=== PATIENT | female | born 1995 | race Caucasian/White ===

== ENCOUNTER 2017-08-21 15:16 | Emergency (ER) | payer BC, SELFPAY ==
[2017-08-21 15:17] VITALS: BP 160/80; PULSE 91; RESP 14; TEMP 36.8; O2SAT 99; BMI 26.8
--- NOTE | 2017-08-21 15:32 | XR_ITS ---
XR chest 2V HISTORY: Cough, chest pain ITS.REASON: cough; pain ORDERING PHYSICIAN: Ilene Galvez MD PATIENT AGE: 22 years COMPARISON: None available FINDINGS: The cardiomediastinal silhouette and pulmonary vascularity are within normal limits. No lobar consolidation or collapse is evident. There is a 7 mm nodular opacity overlying the left lower lobe at the fifth interspace anteriorly nonspecific. No effusions. No acute bony abnormalities. IMPRESSION: 1. No acute finding. 2. Nonspecific nodule in the left lower lung zone. This may be related to granuloma. Suggest obtaining old films available. There are no old films available at this institution. If no old films are available then, follow-up radiograph may confirm stability
--- NOTE | 2017-08-21 16:43 | HMH.EDGENADL ---
ED Disposition Clinical Impression: Acute bronchitis, Acute costochondritis, Lung granuloma Acute sinusitis Qualifiers: Sinusitis location: unspecified location Disposition: Home, Self-Care Condition on Discharge: Good Instructions: Sinusitis Additional Instructions: The patient allergy Ceclor and sulfa we decided to go with amoxicillin that she tolerated in the past. She is to follow-up with Dr. Hays in the morning on her abnormal chest x-ray and for reexamination. Return if needed. Prescriptions: Amoxicillin [Amoxicillin 500mg Cap] 500 mg PO TID #30 capsule Referrals: Provider,Referral, [Primary Care Provider] - - Critical Care Critical Care Time: No Attestation: On 08/21/17, the high probability of a clinically significant, sudden or life threatening deterioration of the following system(s) required my full and direct attention, intervention and personal management. The time I documented below is in addition to time spent performing reported procedures but includes the following listed in this critical care notation. Medical Decision Making Vital Signs: 08/21/17 15:17 Temperature 98.2 F Temperature Source Oral Pulse Rate [Left Brachial] 91 H Respiratory Rate 14 Blood Pressure [Right Arm] 160/80 Blood Pressure Mean [Right Arm] 106 Blood Pressure Source [Right Arm] Automatic Cuff Blood Pressure Position [Right Arm] Sitting 02 Sat by Pulse Oximetry 99 Oxygen Delivery Method Room Air - Radiology Data #1 Image(s): Chest Image Reviewed: Yes I reviewed the patient's radiology results, Yes I reviewed the patient's radiology image w/the ED provider Preliminary Findings: Normal/NAD MPRESSION: 1. No acute finding. 2. Nonspecific nodule in the left lower lung zone. This may be related to granuloma. Suggest obtaining old films available. There are no old films available at this institution. If no old films are available then, follow-up radiograph may confirm stability. I informed the patient of the above findings. She was informed that she needs to follow-up with Dr. Hays on on her clinical condition and the chest x-ray report. - Zeeshan Inquiry Pt receiving controlled substance: No Zeeshan was queried for this patient: No General Adult HPI - General Chief complaint: PAIN Stated complaint: Pain in chest, has cold Mode of Arrival: Ambulatory Limitations: No Limitations Description of Symptoms (Recalled from ER Triage Doc. by RN): pt c/o productive cough and hurts to take a breath for the past couple of days - History of Present Illness HPI narrative: 22 years old white female with history of VSD and seizures. she she developed a sore throat's and sinus drainage 10 days ago, then she developed green productive cough for the past week, the past 2 days she has been experiencing parasternal sharp chest pain worse with cough. She does take control pills. He denies having shortness of air palpitations or dizziness. Onset (ago): day(s) (Cough for 10 days and pain for 2 days.) Location: chest Radiation: non-radiation Severity: moderate Quality: sharp Consistency: intermittent Relieving factors: other (Not cough) Exacerbating factors: other (Cough.) Treatments prior to arrival: cold therapy ([id number] cough medicine) - Related Data Previous Rx's Medication Instructions Recorded Amoxicillin [Amoxicillin 500mg 500 mg PO TID #30 capsule 08/21/17 Cap] Allergies Allergy/AdvReac Type Severity Reaction Status Date / Time Cefaclor Allergy Unknown Uncoded 07/29/17 15:01 Sulfonamide Allergy Unknown Uncoded 07/29/17 15:01 [facility] History I have reviewed the patient's past medical history: Yes Medical History: Denies:: Cancer, Diabetes Mellitus Type 1, Diabetes Mellitus Type 2, MRSA Amputation: No Fractures: No - *Social History Alcohol Intake: never - Psychiatric History Expresses thoughts of harming self/others: None Suicide Plan D
--- NOTE | 2017-08-21 16:49 | ED_ITS ---
ED Disposition Clinical Impression: Acute bronchitis, Acute costochondritis, Lung granuloma Acute sinusitis Qualifiers: Sinusitis location: unspecified location Disposition: Home, Self-Care Condition on Discharge: Good Instructions: Sinusitis Additional Instructions: The patient allergy Ceclor and sulfa we decided to go with amoxicillin that she tolerated in the past. She is to follow-up with Dr. Hays in the morning on her abnormal chest x-ray and for reexamination. Return if needed. Prescriptions: Amoxicillin [Amoxicillin 500mg Cap] 500 mg PO TID #30 capsule Referrals: Provider,Referral, [Primary Care Provider] - - Critical Care Critical Care Time: No Attestation: On 08/21/17, the high probability of a clinically significant, sudden or life threatening deterioration of the following system(s) required my full and direct attention, intervention and personal management. The time I documented below is in addition to time spent performing reported procedures but includes the following listed in this critical care notation. Medical Decision Making Vital Signs: 08/21/17 15:17 Temperature 98.2 F Temperature Source Oral Pulse Rate [Left Brachial] 91 H Respiratory Rate 14 Blood Pressure [Right Arm] 160/80 Blood Pressure Mean [Right Arm] 106 Blood Pressure Source [Right Arm] Automatic Cuff Blood Pressure Position [Right Arm] Sitting 02 Sat by Pulse Oximetry 99 Oxygen Delivery Method Room Air - Radiology Data #1 Image(s): Chest Image Reviewed: Yes I reviewed the patient's radiology results, Yes I reviewed the patient's radiology image w/the ED provider Preliminary Findings: Normal/NAD MPRESSION: 1. No acute finding. 2. Nonspecific nodule in the left lower lung zone. This may be related to granuloma. Suggest obtaining old films available. There are no old films available at this institution. If no old films are available then, follow-up radiograph may confirm stability. I informed the patient of the above findings. She was informed that she needs to follow-up with Dr. Hays on on her clinical condition and the chest x-ray report. - Zeeshan Inquiry Pt receiving controlled substance: No Zeeshan was queried for this patient: No General Adult HPI - General Chief complaint: PAIN Stated complaint: Pain in chest, has cold Mode of Arrival: Ambulatory Limitations: No Limitations Description of Symptoms (Recalled from ER Triage Doc. by RN): pt c/o productive cough and hurts to take a breath for the past couple of days - History of Present Illness HPI narrative: 22 years old white female with history of VSD and seizures. she she developed a sore throat's and sinus drainage 10 days ago, then she developed green productive cough for the past week, the past 2 days she has been experiencing parasternal sharp chest pain worse with cough. She does take control pills. He denies having shortness of air palpitations or dizziness. Onset (ago): day(s) (Cough for 10 days and pain for 2 days.) Location: chest Radiation: non-radiation Severity: moderate Quality: sharp Consistency: intermittent Relieving factors: other (Not cough) Exacerbating factors: other (Cough.) Treatments prior to arrival: cold therapy ([id number] cough medicine) - Related Data Previous Rx's Medication Instructions Recorded Amoxicillin [Amoxicillin 50
== END 2017-08-21 17:02 | disposition home or self-care (01) ==
PROVIDERS: Emergency Provider Emergency Medicine; Family Provider Family Medicine
DX: J20.9 Acute bronchitis, unspecified (principal); M94.0 Chondrocostal junction syndrome [Tietze]; J84.10 Pulmonary fibrosis, unspecified; Z88.1 Allergy status to other antibiotic agents; Z88.2 Allergy status to sulfonamides; R56.9 Unspecified convulsions
CPT/HCPCS: 71046; 99283

== ENCOUNTER 2017-09-09 19:19 | Emergency (ER) | payer BC, SELFPAY ==
[2017-09-09 19:33] VITALS: BP 144/88; PULSE 88; RESP 22; TEMP 36.8; O2SAT 97; BMI 24.7
--- NOTE | 2017-09-09 20:07 | HMH.EDUTC ---
[facility] [place] Impression: Acute bronchitis Qualifiers: Bronchitis organism: unspecified organism Qualified Code(s): J20.9 - Acute bronchitis, unspecified Disposition: Home, Self-Care Condition on Discharge: Good Instructions: DI for Acute Bronchitis Additional Instructions: * start antibiotic JACKSON. Be sure to complete entire prescription even if feeling better. * Monitor Temp. Follow up if fever develops * humidifier/vaporizer/hot steamy shower * Inhaler every 4-6 hours as needed like we discussed. * Mucinex during the day for your cough and cough suppressant only at night. Be sure to drink lots of water. Insurance may not cover a prescription of mucinex. Might be cheaper to get 400mg tablets and take 2 tablets morning, midday and evening all with lots of water. * Robitussin ok to continue but would encourage it for nighttime. * Start steroid JACKSON. Helps with inflammation therefore, cough and wheezing. Follow directions on package. Rvwd side effects. Pt reports they have taken them before. Prescriptions: Azithromycin [Z-Horacio 250mg Tab] 250 mg PO UD DOSE PK #6 tab predniSONE [Deltasone 10mg tablet] 10 mg PO BID #10 tab Referrals: Sterling Awan MD [Primary Care Provider] - (tomorrow for final xray results and IMMEDIATELY for new or worsening symptoms OR no noticeable improvement over the next 48-72 hours. 911 for difficulty breathing.) Time of Disposition: 21:16 Medical Decision Making Vital Signs: 09/09/17 19:33 Temperature 98.2 F Temperature Source Temporal Artery Scan Pulse Rate [Right] 88 Respiratory Rate 22 Blood Pressure [Right Arm] 144/88 Blood Pressure Mean [Right Arm] 106 Blood Pressure Source [Right Arm] Automatic Cuff Blood Pressure Position [Right Arm] Sitting 02 Sat by Pulse Oximetry 97 Oxygen Delivery Method Room Air Orders (Tests/Meds): ORDERS Category Date Time Status CXR 2 view (NOT portable) [XR chest 2V] Stat Exams 09/09/17 20:19 Taken - Radiology Data #1 Image(s): Chest Image Reviewed: Yes I reviewed the patient's radiology image w/the ED provider Rvwd with ARIK Ramsay MD. Reports no acute findings and suggest azithromycin and steroid based on symptoms. Aware pt and I had already discussed this POC pending xray results - Zeeshan Inquiry Pt receiving controlled substance: No [facility] [place] - General Stated complaint: Upper Respiratory Time Seen by Provider: 09/09/17 20:07 Mode of Arrival: Ambulatory Source of Information: Patient Limitations: No Limitations Description of Symptoms (Recalled from Triage Doc. by RN): COUGH, CONGESTION HEENT Symptoms (Recalled from RN notes): Yes Resp Symptoms (Recalled from RN notes): No Skin Symptoms (Recalled from RN notes): No MS Symptoms (Recalled from RN notes): No Functional Status (Recalled from RN notes): N - History of Present Illness Provider Complaint: Here w/ mom c/o cough x 2-3 weeks. Reports was seen in ER. Dx possible pneumonia and prescribed amoxicillin. Followed up with PCP, Dr. awan. Was told amoxicillin not necessary but could take it if she wanted to and to repeat CXR in 3 months due to nodule left lower lung. Has taken amoxicillin here and there and still have several remaining. Cough no better. Robitussin helps with cough at night. Hasn't taken or tried anything else. Mom with upper resp symptoms but little to no cough and pt without head symptoms. SOA at times only with exertion. Doesn't think she has been wheezing. - Related Data Home Medications Medication Instructions Recorded Confirmed Amoxicillin [Amoxicillin 500mg 500 mg PO TID 09/09/17 09/09/17 Cap] Previous Rx's Medication Instructions Recorded Azithromycin [Z-Horacio 250mg Tab] 250 mg PO UD DOSE PK #6 tab 09/09/17 predniSONE [Deltasone 10mg tablet] 10 mg PO BID #10 tab 09/09/17 Allergies Allergy/AdvReac Type Severity Reaction Status Date / Time Cefaclor Allergy Unknown Uncoded 07/29/17 15:01 Sulfonamide Allergy
--- NOTE | 2017-09-09 20:19 | XR_ITS ---
XR chest 2V HISTORY: ITS.REASON: cough x 2-3 weeks; nonsmoker, last CXR 2-3 weeks ORDERING PHYSICIAN: Enma Huitron PATIENT AGE: 22 years COMPARISON: 08/21/2017 FINDINGS: The cardiomediastinal silhouette and pulmonary vascularity are within normal limits. Patchy infiltrate suspected right lung base medially. Previously noted nodular opacity left lung base somewhat less apparent possibly related to technique. Continued follow-up recommended. No acute bony anomalies. IMPRESSION: Patchy infiltrate in the right lung base
== END 2017-09-09 21:16 | disposition home or self-care (01) ==
PROVIDERS: Emergency Provider Nurse Practitioner Family; Family Provider Family Medicine; PCP Family Medicine
DX: J20.9 Acute bronchitis, unspecified (principal); Z88.2 Allergy status to sulfonamides
CPT/HCPCS: 71046; 99202

== ENCOUNTER → 2019-06-08 15:27 | Outpatient (CLI) | payer OTHER, SELFPAY | PROVIDERS: Visit Provider Obstetrics & Gynecology | DX: R53.83 Other fatigue (principal) | CPT/HCPCS: 36415; 84443 ==

== ENCOUNTER → 2020-02-25 13:12 | Outpatient (CLI) | payer OTHER, SELFPAY ==
[2020-02-25 16:10] LABS: Coronavirus 19 IgG Antibody Negative (Negative); Coronavirus 19 IgM Antibody Negative (Negative)
== END ==
PROVIDERS: PCP Family Medicine; Visit Provider Family Medicine
DX: Z03.818 Encounter for observation for suspected exposure to other biological agents ruled out (principal)
CPT/HCPCS: 86328

== ENCOUNTER 2020-03-01 07:41 | Emergency (ER) | payer OTHER, SELFPAY ==
[2020-03-01 07:50] VITALS: BP 132/85; PULSE 85; RESP 16; TEMP 36.8; O2SAT 99; BMI 29.2
--- NOTE | 2020-03-01 07:57 | PC.NURSE ---
Notified lab need for workmans comp drug screen
--- NOTE | 2020-03-01 08:21 | HMH.EDGENADL ---
ED Disposition Clinical Impression: Thoracic myofascial strain Qualifiers: Encounter type: initial encounter Qualified Code(s): S29.019A - Strain of muscle and tendon of unspecified wall of thorax, initial encounter Disposition: Home, Self-Care Condition on Discharge: Good Additional Instructions: Ibuprofen for pain. May take Robaxin (muscle relaxer) at night if needed, do not take during the day, while driving, or at work. Apply heat 20 to 30 minutes 3-4 times a day. Follow-up with primary care provider, call for appointment. Light duty, no lifting, pushing, or pulling for 3 days. Prescriptions: Ibuprofen [Ibuprofen 600mg Tab] 600 mg PO Q6HP PRN #12 tab PRN Reason: Moderate Pain Transmission Status: P[facility] to [facility] methocarbamoL [Robaxin 750mg Tab] 750 mg PO QIDP PRN #12 tab PRN Reason: Muscle Spasm Transmission Status: Pending to [facility] Referrals: Sterling Hays MD [Primary Care Provider] - - Critical Care Critical Care Time: No Attestation: On 03/01/20, the high probability of a clinically significant, sudden or life threatening deterioration of the following system(s) required my full and direct attention, intervention and personal management. The time I documented below is in addition to time spent performing reported procedures but includes the following listed in this critical care notation. Medical Decision Making - Zeeshan Inquiry Pt receiving controlled substance: No Vital Signs: 03/01/20 07:50 Temperature 98.3 F Temperature Source Oral Pulse Rate [Right] 85 Respiratory Rate 16 Blood Pressure [Right Arm] 132/85 Blood Pressure Mean [Right Arm] 100 Blood Pressure Source [Right Arm] Automatic Cuff Blood Pressure Position [Right Arm] Sitting 02 Sat by Pulse Oximetry 99 Oxygen Delivery Method Room Air Orders (Tests/Meds): ORDERS Category Date Time Status CT thoracic spine wo con Stat Cat Scan 03/01/20 08:40 Ordered General Adult HPI - General Chief complaint: Back Pain/Injury Stated complaint: [id number] back pain Time Seen by Provider: 03/01/20 08:21 Mode of Arrival: Ambulatory Limitations: No Limitations Description of Symptoms (Recalled from ER Triage Doc. 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 - History of Present Illness HPI narrative: States that at 710 this morning she was moving a resident with another employee when she felt a sudden pain in the area of her left scapula. States it currently hurts most when she tries to sit up straight. No fall or direct trauma. No treatment prior to arrival. - Related Data Home Medications Medication Instructions Recorded Confirmed metoprolol succ 25 1 tab PO DAILY 06/08/19 03/01/20 mg-hydrochlorothiazide 12.5 mg tablet,ext.rel 24 hr Medroxyprogesterone Acetate 5 mg PO ONCE 03/01/20 03/01/20 Previous Rx's Medication Instructions Recorded Ibuprofen [Ibuprofen 600mg Tab] 600 mg PO Q6HP PRN #12 tab 03/01/20 methocarbamoL [Robaxin 750mg Tab] 750 mg PO QIDP PRN #12 tab 03/01/20 Allergies Allergy/AdvReac Type Severity Reaction Status Date / Time No Known Allergies Allergy Verified 03/01/20 07:56 [facility] History - Hepatitis A Screen Drug use history?: No High risk sexual behaviors?: No History of sexually transmitted infection?: No Currently employed?: No Childcare worker?: No Do you have indoor plumbing?: Yes Do you have electricity?: Yes Attestation statement:: This patient has been screened for Hepatitis A risk factors. 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 WISDOM TEETH REMOVAL--
[2020-03-01 09:06] VITALS: BP 132/85; PULSE 85; RESP 16; TEMP 36.8; O2SAT 99
== END 2020-03-01 09:08 | disposition home or self-care (01) ==
PROVIDERS: Emergency Provider Emergency Medicine; PCP Family Medicine
DX: S29.019A Strain of muscle and tendon of unspecified wall of thorax, initial encounter (principal); I10 Essential (primary) hypertension; X50.0XXA Overexertion from strenuous movement or load, initial encounter; Y92.69 Other specified industrial and construction area as the place of occurrence of the external cause; Y99.0 Civilian activity done for income or pay
CPT/HCPCS: 99281

== ENCOUNTER 2020-06-26 18:56 | Emergency (ER) | payer OTHER, SELFPAY ==
[2020-06-26 19:10] VITALS: BP 125/88; PULSE 89; RESP 18; TEMP 36.8; O2SAT 98; BMI 29.2
--- NOTE | 2020-06-26 19:33 | HMH.EDUTC ---
[facility] – [place] Disposition Clinical Impression: Sinusitis Qualifiers: Sinusitis location: unspecified location Chronicity: acute Recurrence: non-recurrent Qualified Code(s): J01.90 - Acute sinusitis, unspecified Disposition: Home, Self-Care Condition on Discharge: Good Instructions: Sinusitis, DI for Sinusitis Additional Instructions: Drink plenty of fluids. Take tylenol or ibuprofen for pain or fever. Take the medications as directed. Follow up with your regular doctor. GO TO THE ER FOR ANY WORSENING SYMPTOMS Prescriptions: Brompheniramine/Pseudoephed/Dm [Bromfed Dm Cough Syrup] 5 ml PO Q6HP PRN #240 syrup PRN Reason: Cough Transmission Status: Received by [id number] Azithromycin [Z-Horacio 250mg Tab*] 250 mg PO UD DOSE PK #6 tab Transmission Status: Received by [id number] Referrals: Sterling Hays MD [Primary Care Provider] - Time of Disposition: 19:35 Medical Decision Making - Medical Records Medical records reviewed: No: I reviewed the patient's medical records. - Zeeshan Inquiry Pt receiving controlled substance: No Vital Signs: 06/26/20 19:10 06/26/20 19:37 Temperature 98.2 F 98.2 F Temperature Source Oral Pulse Rate 89 Pulse Rate [Right Brachial] 89 Respiratory Rate 18 18 Blood Pressure 125/88 Blood Pressure [Right Arm] 125/88 Blood Pressure Mean [Right Arm] 100 Blood Pressure Source [Right Arm] Automatic Cuff Blood Pressure Position [Right Arm] Sitting 02 Sat by Pulse Oximetry 98 Oxygen Delivery Method Room Air [facility] [place] HPI - General Stated complaint: cough possible sinus infection Time Seen by Provider: 06/26/20 19:33 Mode of Arrival: Ambulatory Source of Information: Patient Limitations: No Limitations Description of Symptoms (Recalled from Triage Doc. by RN): PATIENT C/O SINUS PRESSURE AND PAIN SINCE FRIDAY HEENT Symptoms (Recalled from RN notes): Yes Resp Symptoms (Recalled from RN notes): No Skin Symptoms (Recalled from RN notes): No MS Symptoms (Recalled from RN notes): No Functional Status (Recalled from RN notes): WNL - History of Present Illness Provider Complaint: She states that she has had sinus congestion for the past 2 days. She had a negative covid test today at her job. - Related Data Previous Rx's Medication Instructions Recorded Azithromycin [Z-Horacio 250mg Tab*] 250 mg PO UD DOSE PK #6 tab 06/26/20 Brompheniramine/Pseudoephed/Dm 5 ml PO Q6HP PRN #240 syrup 06/26/20 [Bromfed Dm Cough Syrup] Allergies Allergy/AdvReac Type Severity Reaction Status Date / Time cefaclor [From Ceclor] Allergy Verified 06/26/20 19:21 Sulfa (Sulfonamide Allergy Verified 06/26/20 19:21 Antibiotics) - Worker's Comp Is this a Worker's Comp case?: No [facility] History - Hepatitis A Screen Drug use history?: No High risk sexual behaviors?: No History of sexually transmitted infection?: No Currently employed?: No Childcare worker?: No Do you have indoor plumbing?: Yes Do you have electricity?: Yes Attestation statement:: This patient has been screened for Hepatitis A risk factors. 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 WISDOM TEETH REMOVAL---2016 - Social History Smoking Status: Never smoker Alcohol Intake: never Alcohol Intake Frequency:: other Substance Use Type: denies use Occupational Status: other Family Hx:: No significant family history RADIOGRAPHER history: No RADIOGRAPHER history ROS Obtained: Yes All systems reviewed & no additional complaints - Constitutional Constitutional: Reports system reviewed and no additional complaints, except as docu - Eyes Eyes: Reports system reviewed and no additional complaints, except as docu - ENT Ears, Nose, Mouth, and Throat: Reports system reviewed and no additional complaints, except a
[2020-06-26 19:37] VITALS: BP 125/88; PULSE 89; RESP 18; TEMP 36.8; O2SAT 98
== END 2020-06-26 19:43 | disposition home or self-care (01) ==
PROVIDERS: Emergency Provider Nurse Practitioner Family; PCP Family Medicine
DX: J01.90 Acute sinusitis, unspecified (principal); I10 Essential (primary) hypertension; Z88.2 Allergy status to sulfonamides
CPT/HCPCS: 99201

== ENCOUNTER 2020-08-24 19:15 | Emergency (ER) | payer OTHER, SELFPAY ==
[2020-08-24 19:40] VITALS: BP 136/90; PULSE 97; RESP 19; TEMP 37; O2SAT 98
--- NOTE | 2020-08-24 20:01 | HMH.EDUTC ---
[facility] [place] Disposition Clinical Impression: Upper respiratory infection Qualifiers: URI type: unspecified URI Qualified Code(s): J06.9 - Acute upper respiratory infection, unspecified Disposition: Home, Self-Care Condition on Discharge: Good Instructions: Sore Throat, DI for Sinusitis Additional Instructions: *Monitor Temp, Over the counter Motrin or Tylenol as directed/as needed Tylenol every 4 hours and Motrin every 6 hours (as long as your family doctor has told you that you can take it) for fever or pain. and straight to ER if unable to lower temp less than 101.0 after medication given *Warm salt water gargles may help to soothe the throat *Throat Lozenges *Warm fluids like tea with honey may help to soothe the throat *Sleep elevated *Humidifier/Vaporizer Your throat swab was sent for culture. Those results are typically sent to your primary care. Be sure to follow up in 2-3 days with your family doctor/primary care physician if no improvement so they can review those result and treat if necessary. If you don?t have a primary care doctor, I recommend you get one but in the mean time, you will have to return to a walk in clinic Follow up IMMEDIATELY for new or worsening symptoms or no Noticeable improvement over the next 48-72 hours. 911 for difficulty breathing or swallowing Prescriptions: Azithromycin [Z-Horacio 250mg Tab] 250 mg PO DIRECTED #6 tab Transmission Status: Pending to [id number] Referrals: Sterling Hays MD [Primary Care Provider] - As needed Forms: Work/School Release Time of Disposition: 20:05 Medical Decision Making - Zeeshan Inquiry Pt receiving controlled substance: No Zeeshan was queried for this patient: No Vital Signs: 08/24/20 19:40 Temperature 98.6 F Temperature Source Oral Pulse Rate [Right Brachial] 97 H Respiratory Rate 19 Blood Pressure [Left Arm] 136/90 Blood Pressure Mean [Left Arm] 105 Blood Pressure Source [Left Arm] Automatic Cuff Blood Pressure Position [Left Arm] Sitting 02 Sat by Pulse Oximetry 98 Oxygen Delivery Method Room Air Medical Decision Narrative: Patient denies States that she has taken azithromycin before without complications or reactions [facility] [place] HPI - General Stated complaint: Sore throat Time Seen by Provider: 08/24/20 20:01 Mode of Arrival: Ambulatory Source of Information: Patient Limitations: No Limitations Description of Symptoms (Recalled from Triage Doc. by RN): PATIENT C/O SORE THROAT AND COUGH THAT STARTED LAST NIGHT HEENT Symptoms (Recalled from RN notes): No Resp Symptoms (Recalled from RN notes): No Skin Symptoms (Recalled from RN notes): No MS Symptoms (Recalled from RN notes): No Functional Status (Recalled from RN notes): WNL - History of Present Illness Provider Complaint: Patient states that she has been having sinus pain and congestion on and off for a couple of weeks State that last night she started having pressure and sore scratchy throat States that today she has continued to have sore throat and hurt when she swallows so she came in to get checked - Related Data Previous Rx's Medication Instructions Recorded Azithromycin [Z-Horacio 250mg Tab] 250 mg PO DIRECTED #6 tab 08/24/20 Allergies Allergy/AdvReac Type Severity Reaction Status Date / Time cefaclor [From Ceclor] Allergy Verified 06/26/20 19:21 Sulfa (Sulfonamide Allergy Verified 06/26/20 19:21 Antibiotics) - Worker's Comp Is this a Worker's Comp case?: No [facility] History - Hepatitis A Screen Drug use history?: No High risk sexual behaviors?: No History of sexually transmitted infection?: No Currently employed?: No Childcare worker?: No Do you have indoor plumbing?: Yes Do you have electricity?: Yes Attestation statement:: This patient has been screened for Hepatitis A risk factors. Medical History: Reports:: Hypertension Denies:: Cancer, Diabetes Mellitus Type 1, Diabetes Mellitus Type 2, MRSA Comment: ALEAH Rosen
[2020-08-24 20:10] VITALS: BP 136/90; PULSE 97; RESP 19; TEMP 37; O2SAT 98
[2020-08-24 20:53] LABS: UTC Strep Screen (Rapid) Negative (Negative)
== END 2020-08-24 20:12 | disposition home or self-care (01) ==
PROVIDERS: Emergency Provider Nurse Practitioner; PCP Family Medicine
DX: J06.9 Acute upper respiratory infection, unspecified (principal); I10 Essential (primary) hypertension; Z88.2 Allergy status to sulfonamides
CPT/HCPCS: 87880; 99202; G0463

== ENCOUNTER → 2021-01-01 13:02 | Outpatient (CLI) | payer OTHER, SELFPAY ==
[2021-01-01 14:49] LABS: HCG,Quantitative < 2 mIU/ml (0-5.42)
[2021-01-04 05:52] LABS: Progesterone 0.1 ng/mL (.)
== END ==
PROVIDERS: Visit Provider Obstetrics & Gynecology
DX: N97.9 Female infertility, unspecified (principal)
CPT/HCPCS: 36415; 84144; 84702

== ENCOUNTER → 2021-01-23 08:48 | Outpatient (CLI) | payer OTHER, SELFPAY ==
[2021-01-24 08:43] LABS: Progesterone 21.9 ng/mL (.)
== END ==
LOC: LAB 08:48
PROVIDERS: Visit Provider Obstetrics & Gynecology
DX: N97.9 Female infertility, unspecified (principal)
CPT/HCPCS: 36415; 84144

== ENCOUNTER → 2021-01-26 08:57 | Outpatient (CLI) | payer OTHER, SELFPAY ==
[2021-01-26 10:37] LABS: HCG,Quantitative < 2 mIU/ml (0-5.42)
== END ==
LOC: LAB 08:57
PROVIDERS: Visit Provider Obstetrics & Gynecology
DX: N97.9 Female infertility, unspecified (principal)
CPT/HCPCS: 36415; 84702

== ENCOUNTER → 2021-02-06 12:48 | Outpatient (CLI) | payer OTHER, SELFPAY ==
[2021-02-06 14:07] LABS: HCG,Quantitative 982 mIU/ml (0-5.42)
== END ==
LOC: LAB 12:49
PROVIDERS: Visit Provider Obstetrics & Gynecology
DX: Z34.90 Encounter for supervision of normal pregnancy, unspecified, unspecified trimester (principal)
CPT/HCPCS: 84702

== ENCOUNTER → 2021-02-08 08:37 | Outpatient (CLI) | payer OTHER, SELFPAY ==
[2021-02-08 10:12] LABS: HCG,Quantitative 2094 mIU/ml (0-5.42)
== END ==
PROVIDERS: Visit Provider Obstetrics & Gynecology
DX: Z34.90 Encounter for supervision of normal pregnancy, unspecified, unspecified trimester (principal)
CPT/HCPCS: 36415; 84702

== ENCOUNTER → 2021-02-27 14:41 | Outpatient (CLI) | payer OTHER, SELFPAY ==
--- NOTE | 2021-02-27 14:42 | US_ITS ---
PROCEDURE: US OB <= 14 WEEKS FETUS CLINICAL INDICATION: dates COMPARISON: No exams were available for comparison FINDINGS: An intrauterine gestational sac is present with a pole with a crown-rump length of 1.17cm correlating to gestational age of 7weeks 3days. heart tones are present with an FHR of 147bpm. Yolk sac is noted. Ovaries are not visualized due to the presence of bowel gas in bilateral adnexa. IMPRESSION: Single intrauterine gestation with gestational age of 7 weeks and 3 days. Estimated due date by Ultrasound is 10/13/2021 Dictated by: Maggie Valladares 02/27/2021 16:25 Maggie Valladares in OV 02/27/2021 16:25
== END ==
PROVIDERS: PCP Family Medicine; Visit Provider Obstetrics & Gynecology
DX: Z34.91 Encounter for supervision of normal pregnancy, unspecified, first trimester (principal)
CPT/HCPCS: 76801

== ENCOUNTER → 2021-03-02 14:50 | Outpatient (CLI) | payer OTHER, SELFPAY ==
[2021-03-02 15:35] LABS: Basophils % 0.5 % (0.1-2.0); Eosinophils % 0.3 % (0.1-12.0); Hematocrit 40.2 % (37.0-47.0); Lymphocytes # 2.6 K/mm3 (0.7-4.5); Lymphocytes % 26.6 % (10-50); Mean Corpuscular HGB Conc 34.8 g/dL (31.8-35.4); Mean Corpuscular Hemoglobin 30.5 pg (27.0-31.2); Mean Corpuscular Volume 87.5 fl (81-99); Mean Platelet Volume 7.3 fl (7.4-10.4); Monocytes # 0.4 K/mm3 (0.1-1.0); Neutrophils # 6.5 K/mm3 (1.8-7.8); Neutrophils % 68.5 % (37.0-80.0); Platelet Count 273 K/mm3 (142-424); Red Blood Count 4.59 M/mm3 (4.20-5.40); White Blood Count 9.5 K/mm3 (4.8-10.8)
[2021-03-04 07:43] LABS: Rubella Antibodies, IgG 1.75 index (Immune >0.99)
[2021-03-04 10:41] LABS: HIV Screen 4th Generation wRfx Non Reactive (Non Reactive); Rapid Plasma Reagin Ab Titer Non Reactive (NonRea<1:1)
[2021-03-04 11:27] LABS: Hepatitis B Surface Antigen Negative (Negative); Hepatitis C Antibody <0.1 s/co ratio (0.0-0.9)
== END ==
PROVIDERS: Visit Provider Obstetrics & Gynecology
DX: Z34.90 Encounter for supervision of normal pregnancy, unspecified, unspecified trimester (principal)
CPT/HCPCS: 36415; 85025; 86592; 86703; 86762; 87086; 87340; 87380; G0432

== ENCOUNTER → 2021-03-02 16:33 | Outpatient (CLI) | payer OTHER, SELFPAY | PROVIDERS: Visit Provider Obstetrics & Gynecology | DX: Z34.90 Encounter for supervision of normal pregnancy, unspecified, unspecified trimester (principal) | CPT/HCPCS: 86850 ==

== ENCOUNTER 2021-03-14 13:19 | Emergency (ER) | payer OTHER, SELFPAY ==
[2021-03-14 13:21] VITALS: BP 132/81; PULSE 100; RESP 16; TEMP 36.8; O2SAT 100; BMI 32.4
[2021-03-14 13:43] LABS: Microscopic, Urine URINE MICROSCOPIC (MICROSCOPIC)
[2021-03-14 13:47] LABS: Appearance,Urine CLEAR (Clear); Bilirubin,Urine Negative (Negative); Blood, Urine Negative (Negative); Color,Urine YELLOW (Yellow); Glucose,Urine (UA) Negative (Negative); Ketones,Urine Negative (Negative); Leukocyte Esterase,Urine 1+ (Negative); Nitrate,Urine Negative (Negative); PH,Urine 5.5 (5.0-8.5); Protein,Urine Negative (Negative); Specific Gravity, Urine <= 1.005 (1.005-1.030); Urobilinogen,Urine 0.2 EU/dl (0.2)
[2021-03-14 13:57] LABS: RBC,Urine Occasional #/hpf (0-3)
[2021-03-14 13:58] LABS: Bacteria,Urine Trace /lpf
--- NOTE | 2021-03-14 15:20 | HMH.EDGENADL ---
ED Disposition Clinical Impression: Bacteriuria during Disposition: Home, Self-Care Condition on Discharge: Good Prescriptions: Nitrofurantoin Monohyd/M-Cryst [Macrobid 100 mg Capsule] 100 mg PO BID #9 cap Transmission Status: Pending to [id number] Referrals: Sterling Hays MD [Primary Care Provider] - Sheila Combs MD [Staff Physician] - (call for appt) Time of Disposition: 16:07 - Critical Care Critical Care Time: No Attestation: On 03/14/21, the high probability of a clinically significant, sudden or life threatening deterioration of the following system(s) required my full and direct attention, intervention and personal management. The time I documented below is in addition to time spent performing reported procedures but includes the following listed in this critical care notation. Medical Decision Making - Medical Records Medical records reviewed: Yes: I reviewed the patient's medical records. - Zeeshan Inquiry Pt receiving controlled substance: No Vital Signs: 03/14/21 13:21 Temperature 98.3 F Temperature Source Oral Pulse Rate [Right Radial] 100 H Respiratory Rate 16 Blood Pressure [Right Arm] 132/81 Blood Pressure Mean [Right Arm] 98 Blood Pressure Source [Right Arm] Automatic Cuff Blood Pressure Position [Right Arm] Sitting 02 Sat by Pulse Oximetry 100 Oxygen Delivery Method Room Air - Lab Data Lab results reviewed: Yes: I reviewed the patient's lab results. Lab Results 03/14/21 13:28: Urine Color Yellow, Urine Appearance Clear, Urine pH 5.5, Ur Specific [place] <= 1.005, Urine Protein Negative, Urine Glucose (UA) Negative, Urine Ketones Negative, Urine Blood Negative, Urine Nitrate Negative, Urine Bilirubin Negative, Urine Urobilinogen 0.2, Ur Leukocyte Esterase 1+ A, Urine RBC Occasional, Urine WBC 5-10, Ur Squamous Epith Cells 3-5, Urine Bacteria Trace 03/14/21 13:47: HCG, Quant [id number] H Orders (Tests/Meds): ED MEDICATIONS Discontinued Medications Generic Name Dose Route Start Last Admin Trade Name Freq PRN Reason Stop Dose Admin Nitrofurantoin Macrocrystals 100 mg 03/14/21 16:02 Nitrofurantoin 100mg Capsule PO 03/14/21 16:03 ONCE ONE ORDERS Category Date Time Status Urine Culture Stat Micro 03/14/21 13:28 Received Medical Decision Narrative: 25yo F evaluated for pelvic pain in . Patient no acute distress initial evaluation. Given her history of green/yellow discharge, pelvic exam was completed. No significant discharge is appreciated on pelvic. Patient's urinalysis has trace bacteria in it without other significant findings. Dr. Combs is unavailable and therefore the case was discussed with Dr. Flores. He agrees my plan to not treat as reported vaginal discharge and recommends Macrobid for trace bacteria. Findings and plan were discussed with the patient at bedside. Treated with first dose of Macrobid prior to leaving the emergency department. Encouraged to call Dr. Combs's office to see if they want to follow-up sooner than her scheduled appointment 06 April. General Adult HPI - General Chief complaint: OB/Uterine Contractions Stated complaint: 9-10 wks pg abd cramps/lower back pain Time Seen by Provider: 03/14/21 15:00 Mode of Arrival: Ambulatory Source of Information: Patient Limitations: No Limitations Description of Symptoms (Recalled from ER Triage Doc. by RN): Pt c/o lower abd and lower back cramping since this am with increased vaginal d/c. Denies bleeding. Reports currently 9-10 weeks - History of Present Illness HPI narrative: 25yo F G1 at approx 9wks presents the emergency department secondary to bilateral lower abdomen/pelvic pain. Symptoms began earlier today. They wax and wane. Patient also reports a single episode of vaginal discharge. States it was green and yellow but denies foul odor. Denies any bleeding. Denies any large gush of fluid. Denies any suprapubic pain, other symptoms
--- NOTE | 2021-03-14 15:51 | PC.NURSE ---
Dr Mark watson
--- NOTE | 2021-03-14 15:52 | PC.NURSE ---
Dr Mistry speaking with Dr Flores
[2021-03-14 16:13] VITALS: BP 124/76; PULSE 73; RESP 16; TEMP 36.7; O2SAT 98
== END 2021-03-14 16:14 | disposition home or self-care (01) ==
PROVIDERS: Emergency Provider Family Medicine; PCP Family Medicine
DX: O99.891 Other specified diseases and conditions complicating pregnancy (principal); Z3A.09 9 weeks gestation of pregnancy; Q23.1 Congenital insufficiency of aortic valve
CPT/HCPCS: 81001; 84702; 87086; 99283

== ENCOUNTER 2021-04-04 10:17 | Emergency (ER) | payer OTHER, SELFPAY ==
[2021-04-04 11:13] VITALS: BP 148/88; PULSE 105; RESP 20; TEMP 36.9; O2SAT 99; BMI 31.2
[2021-04-04 11:37] VITALS: BP 148/88; PULSE 105; RESP 21; TEMP 36.9
--- NOTE | 2021-04-04 11:40 | HMH.EDUTC ---
[facility] [place] Disposition Clinical Impression: Encounter for laboratory testing for COVID-19 virus Disposition: Home, Self-Care Condition on Discharge: Good Instructions: DI for COVID-19 (Suspected or Confirmed ), Coronavirus Disease 2019, Preventing the Spread of Coronavirus Discharge Instructions Additional Instructions: *Monitor Temp, Over the counter Motrin or Tylenol as directed/as needed Tylenol every 4 hours and Motrin every 6 hours (as long as your family doctor has told you that you can take it) for fever or pain. and straight to ER if unable to lower temp less than 101.0 after medication given *Warm salt water gargles may help to soothe the throat *Throat Lozenges *Warm fluids like tea with honey may help to soothe the throat *Sleep elevated *Humidifier/Vaporizer Follow up IMMEDIATELY for new or worsening symptoms or no Noticeable improvement over the next 48-72 hours. 911 for difficulty breathing or swallowing You were tested for today for COVID19 your test result should be back in the next 24-48 hours, you may call to the [facility] to see if your test results are back in the next 48 hours [phone] [facility] hours are 9am-9pm You was given a handout with instructions for Self Quarantine and Self isolation for while you wait on test results and what to do if they are positive If you are positive the Health Dept will be contacting you also Make sure to take your Vitamins Vit. C Vit D and Zinc if you can take them Referrals: Sterling Hays MD [Primary Care Provider] - As needed Forms: Work/School Release Time of Disposition: 11:55 Medical Decision Making - Zeeshan Inquiry Pt receiving controlled substance: No Zeeshan was queried for this patient: No Vital Signs: 04/04/21 11:13 04/04/21 11:37 Temperature 98.4 F 98.4 F Temperature Source Oral Pulse Rate 105 H Pulse Rate [Left] 105 H Respiratory Rate 20 21 Blood Pressure 148/88 H Blood Pressure [Right Arm] 148/88 H Blood Pressure Mean [Right Arm] 108 02 Sat by Pulse Oximetry 99 Orders (Tests/Meds): ORDERS Category Date Time Status Covid-19 Nasal PCR ([facility]) Routine Lab 04/04/21 11:19 Received [facility] [place] HPI - General Stated complaint: covid exposure, congestion Time Seen by Provider: 04/04/21 11:40 Mode of Arrival: Ambulatory Source of Information: Patient Limitations: No Limitations Description of Symptoms (Recalled from Triage Doc. by RN): pt had a positive rapid covid swab at work this am. HEENT Symptoms (Recalled from RN notes): No Resp Symptoms (Recalled from RN notes): No Skin Symptoms (Recalled from RN notes): No MS Symptoms (Recalled from RN notes): No Functional Status (Recalled from RN notes): na - History of Present Illness Provider Complaint: Patient state that she 13wks OB State that she works at [employer] and she tested positive on the rapid COVID test at work States that she come here wanting to get tested to make sure that she is positive States that she really aint having any symptoms just nasal congestion - Related Data Home Medications Medication Instructions Recorded Confirmed docosahexaenoic acid 200 mg capsule mg PO 03/02/21 Previous Rx's Medication Instructions Recorded ondansetron 4 mg disintegrating 4 mg PO Q4H PRN #30 tab 03/02/21 tablet Nitrofurantoin Monohyd/M-Cryst 100 mg PO BID #9 cap 03/14/21 [Macrobid 100 mg Capsule] Allergies Allergy/AdvReac Type Severity Reaction Status Date / Time cefaclor [From [facility]] Allergy Verified 04/04/21 11:24 Sulfa (Sulfonamide Allergy Verified 04/04/21 11:24 Antibiotics) - Worker's Comp Is this a Worker's Comp case?: No H History - Hepatitis A Screen Drug use history?: No High risk sexual behaviors?: No History of sexually transmitted infection?: No Currently employed?: No Childcare worker?: No Do you have indoor plumbing?: Yes Do you have electricity?: Yes Attestation statement:: This patient has been screened for Hepatitis A ri
--- NOTE | 2021-04-05 08:32 | PC.NURSE ---
notified pt of positive covid swab results at this time
== END 2021-04-04 12:01 | disposition home or self-care (01) ==
PROVIDERS: Emergency Provider Nurse Practitioner; PCP Family Medicine
DX: U07.1 COVID-19 (principal); Z3A.13 13 weeks gestation of pregnancy
CPT/HCPCS: 99202; G0463; U0003

== ENCOUNTER → 2021-05-28 12:49 | Outpatient (CLI) | payer OTHER, SELFPAY ==
--- NOTE | 2021-05-28 12:50 | US_ITS ---
PROCEDURE: US OB >= 14 WEEKS FETUS CLINICAL INDICATION: OB complete COMPARISON: US US OB <= 14 WEEKS FETUS from 02/27/2021 FINDINGS: Single live intrauterine gestation is present which is in cephalic presentation. The cervix is closed and measures 4 cm. The placenta is wrap-around having both anterior and posterior extension and grade 1. Complete survey performed and was unremarkable on the submitted images as in PACS. No discrete anomalies identified on survey imaging by technologist. Active fetus. Three-vessel cord with satisfactory umbilical cord insertion. 4- chamber heart noted. Survey of brain & ventricles Unremarkable. Face and neck survey unremarkable. Diaphragm and chest views unremarkable. Abdomen: Both kidneys noted and unremarkable. Stomach noted and satisfactory. Spine: Survey of the spine satisfactory with no anomalies identified nor imaged. Both arms and legs noted. Amniotic Fluid: Adequate. Maternal adnexa: No significant findings. Measurements: Average ultrasound age 19weeks 4days. Gestational Age 19weeks 4days Estimated due date by ultrasound age 0310/18/2021. Estimated weight 292g BPD = 19weeks 5days OFD = 19weeks 6days HC = 19weeks 1day AC = 19weeks FL = 20weeks 1day Growth Percentile= 4 percent% Heart Rate = 155bpm Cerebellum = 19weeks 6days Humerus = 20weeks 1day HC/AC is 1.21 CI is 0.78 FL/BPD is 0.71 FL/AC is 0.24 IMPRESSION: Live IUP at 19 weeks 4 days.. No obvious anomalies. Please see above for detail. Dictated by: Iban Nathan MD 05/28/2021 16:30 Iban Nathan MD in OV 05/28/2021 16:30
== END ==
PROVIDERS: PCP Family Medicine; Visit Provider Obstetrics & Gynecology
DX: Z34.90 Encounter for supervision of normal pregnancy, unspecified, unspecified trimester (principal)
CPT/HCPCS: 76805

== ENCOUNTER → 2021-07-04 07:00 | Outpatient (CLI) | payer OTHER, SELFPAY ==
[2021-07-04 07:40] LABS: Glucose,Fasting 100 mg/dl (74-100)
[2021-07-04 08:50] LABS: Glucose 1 Hour 173 mg/dL (74-100)
== END ==
PROVIDERS: Visit Provider Obstetrics & Gynecology
DX: Z34.90 Encounter for supervision of normal pregnancy, unspecified, unspecified trimester (principal)
CPT/HCPCS: 36415; 82951

== ENCOUNTER 2021-07-04 20:51 | Outpatient (CLI) | payer OTHER, SELFPAY ==
[2021-07-04 21:12] VITALS: BMI 31.8
--- NOTE | 2021-07-04 21:33 | US_ITS ---
PROCEDURE INFORMATION: Exam: US After First Trimester, Transabdominal and US , Transvaginal Exam date and time: 07/04/2021 9:33 PM Age: 26 years old Clinical indication: Lmp or gestational age (in weeks): 25 w 4 d; Antepartum complications; ; Patient HX: Bright red bleeding started about 2 hours ago; Additional info: Vaginal bleeding TECHNIQUE: Imaging protocol: Real-time transabdominal obstetrical ultrasound of the maternal pelvis and a second or third trimester with image documentation. Transvaginal imaging was used for better evaluation of the fetus, adnexa, and/or cervix. COMPARISON: US OB >= 14 WEEKS FETUS 05/28/2021 1:18 PM FINDINGS: UTERUS: A single, live intrauterine gestation in cephalic/vertex presentation. Normal cardiac activity was seen at 147 bmp. Open internal os with evidence of funneling, cervical length is approximately 8 mm. . PLACENTA: The placenta is posterior, Grade 0-1 extending across the internal os, placental abruption with echogenic blood clot at the internal os extending into the endocervical canal. . AMNIOTIC FLUID: The amniotic fluid volume is within normal limits for estimated gestational age, CARYN 10.9 cm. . MEASUREMENTS: BPD - 25 weeks and 0 days HC - 24 weeks and 4 days AC - 25 weeks and 1 day FL - 25 weeks and 1 day . SONOGRAPHIC GESTATIONAL AGE: Composite gestational age is 25 weeks and 1 day ??? 1-2 weeks with estimated date of confinement of 10/16/2021. Estimated WEIGHT is 760 g. . SURVEY: Visualized anatomy is unremarkable. . ADNEXA: No adnexal mass or abnormality. No free fluid within the pelvis. IMPRESSION: 1. Single VIABLE intrauterine gestation. 2. Cervical shortening, funneling with open internal os containing blood clot. 3. Posterior placenta with placenta previa and abruption as described.
[2021-07-04 22:25] VITALS: BP 127/80; PULSE 97; RESP 18; TEMP 36.9; O2SAT 97; BMI 31.8
[2021-07-04 22:27] LABS: Microscopic, Urine URINE MICROSCOPIC (MICROSCOPIC)
[2021-07-04 22:29] LABS: Coronavirus 19, PCR Not Detected (NotDetected); Influenza A, PCR Not Detected (NotDetected); Influenza B, PCR Not Detected (NotDetected)
[2021-07-04 22:30] LABS: Appearance,Urine CLOUDY (Clear); Bilirubin,Urine Negative (Negative); Blood, Urine 3+ (Negative); Color,Urine ORANGE (Yellow); Glucose,Urine (UA) Negative (Negative); Ketones,Urine Negative (Negative); Leukocyte Esterase,Urine Negative (Negative); Nitrate,Urine Negative (Negative); Protein,Urine Negative (Negative); Specific Gravity, Urine <= 1.005 (1.005-1.030); Urobilinogen,Urine 0.2 EU/dl (0.2)
[2021-07-04 22:35] LABS: Basophils # 0.1 K/mm3 (0-0.2); Basophils % 0.5 % (0.1-2.0); Eosinophils % 0.5 % (0.1-12.0); Hematocrit 38.6 % (37.0-47.0); Lymphocytes # 2.1 K/mm3 (0.7-4.5); Lymphocytes % 22.2 % (10-50); Mean Corpuscular HGB Conc 33.8 g/dL (31.8-35.4); Mean Corpuscular Volume 91.7 fl (81-99); Mean Platelet Volume 7.3 fl (7.4-10.4); Monocytes # 0.5 K/mm3 (0.1-1.0); Monocytes % 4.7 % (1.7-9.3); Neutrophils # 6.9 K/mm3 (1.8-7.8); Neutrophils % 72.2 % (37.0-80.0); Platelet Count 310 K/mm3 (142-424); Red Blood Count 4.21 M/mm3 (4.20-5.40); Red Cell Distribution Width 14.4 % (11.5-17.5); White Blood Count 9.5 K/mm3 (4.8-10.8)
[2021-07-04 22:41] LABS: Barbiturates Screen,Urine Negative ng/ml (<200); Benzodiazepines Screen,Urine Negative ng/ml (<200)
[2021-07-04 22:42] LABS: Amphetamine/Metha Screen,Urine Negative ng/ml (<1000)
[2021-07-04 22:43] LABS: Cannabinoid Screen,Urine Negative ng/ml (<50); Cocaine Screen,Urine Negative ng/ml (<300)
[2021-07-04 22:44] LABS: Methadone Screen,Urine Negative ng/ml (<300)
[2021-07-04 22:45] LABS: Opiate Screen,Urine Negative ng/ml (<300); Phencyclidine Screen,Urine Negative ng/ml (<25)
[2021-07-04 22:53] LABS: Amorphous Sediment,Urine 1+ /lpf; Bacteria,Urine 1+ /lpf; Mucus,Urine 1+ /lpf
--- NOTE | 2021-07-04 23:03 | HMH.ACPN2 ---
Internal Medicine - PN: Subj *Date: 07/04/21 *Time: 23:03 Interval history: She is a 26-year-old 1 para 0 at 25 weeks and 4 days gestational age. She has had good care throughout the . She is an otherwise healthy lady. She has had an uncomplicated to date. She was eating dinner this evening around 845 and started noticing some bleeding from the vagina. She came into labor and delivery. On arrival here she was having some vaginal bleeding and was passing a few small clots. She had about an 8 inch algaaciq of blood on her truck after arriving. She denies any contractions. We did an ultrasound and fetus is active and there were good heart tones. The fetus is in the cephalic presentation. There are no contractions. There appears to be a marginal posterior placenta previa when we did the transvaginal ultrasound and there was a small amount of blood clot above the cervix. On close inspection of the cervix was appeared that there was funneling and we did measure the cervical length at 1 cm when the funneling was occurring. The patient denies any pain or contractions. Exam Vital signs and Labs for Last 24 Hours: Temp Pulse Resp BP Pulse Ox 98.4 F 97 H 18 127/80 97 07/04/21 22:25 07/04/21 22:25 07/04/21 22:25 07/04/21 22:25 07/04/21 22:25 Laboratory Results - last 24 hr 07/04/21 22:00: Urine Color [place], Urine Appearance Cloudy, Urine pH 7.0, Ur Specific [place] <= 1.005, Urine Protein Negative, Urine Glucose (UA) Negative, Urine Ketones Negative, Urine Blood 3+, Urine Nitrate Negative, Urine Bilirubin Negative, Urine Urobilinogen 0.2, Ur Leukocyte Esterase Negative, Urine RBC 10-20, Urine WBC 3-5, Ur Squamous Epith Cells 3-5, Amorphous Sediment 1+, Urine Bacteria 1+, Urine Mucus 1+ 07/04/21 22:00: Urine Opiates Screen Negative, Urine Methadone Screen Negative, Ur Barbituates Screen Negative, Ur Phencyclidine Scrn Negative, Ur Amphetamines Screen Negative, U Benzodiazepines Scrn Negative, Urine Cocaine Screen Negative, U Marijuana (THC) Screen Negative 07/04/21 22:03: WBC 9.5, RBC 4.21, Hgb 13.0, Hct 38.6, MCV 91.7, MCH 31.0, MCHC 33.8, RDW 14.4, Plt Count 310, MPV 7.3 L, Neut % (Auto) 72.2, Lymph % (Auto) 22.2, Haakon % (Auto) 4.7, Eos % (Auto) 0.5, Baso % (Auto) 0.5, Neut # (Auto) 6.9, Lymph # (Auto) 2.1, Haakon # (Auto) 0.5, Eos # (Auto) 0.0, Baso # (Auto) 0.1 07/04/21 22:12: SARS-CoV-2 (PCR) Not detected, Influenza A Untype (PCR) Not detected, Influenza Type B (PCR) Not detected I & O for Last 24 hours: Intake & Output 07/02/21 07/03/21 07/04/21 07/05/21 11:59 11:59 11:59 11:59 Weight 163 lb - Constitutional no acute distress - *Routine HEENT Exam Head: Present: normocephalic Eye: Present: EOMI, PERRL ENT: Present: mucous membranes moist - *Routine Abdominal Exam Present: soft, normoactive bowel sounds. Absent: tenderness Assessment and Plan (1) Placenta previa antepartum Status: Acute Category: Medical Code(s): O44.00 - Complete placenta previa NOS or without hemorrhage, unspecified trimester (2) Antepartum hemorrhage affecting intrauterine Status: Acute Category: Medical Code(s): O46.90 - Antepartum hemorrhage, unspecified, unspecified trimester - Assessment and plan all Dx Assessment and Plan for all problems:: She has what looks like a posterior marginal placenta previa with a small abruption. There was also funneling of the cervix on transvaginal examination with the cervical length being only 1 cm. There was clot in the internal cervical canal and a small amount of clot at the edge of the placenta. She is hemodynamically stable. She is not actively bleeding heavily. The fetus is active and there are heart tones. The fetus is in the cephalic presentation. We plan to transfer her by ambulance to [facility] in the care of Dr. Ernst. She is receiving IV magnesium sulfate. She has had a 4 g bolus and will be receiving the magnes
[2021-07-04 23:18] LABS: Magnesium 1.7 mg/dl (1.6-2.3)
== END 2021-07-05 00:30 ==
LOC: OBOUT 20:53 → OB 20:55
PROVIDERS: PCP Family Medicine; Visit Provider Nurse Practitioner Obstetrics & Gynecology
DX: O46.8X2 Other antepartum hemorrhage, second trimester (principal); Z3A.25 25 weeks gestation of pregnancy
CPT/HCPCS: 59025; 76816; 80305; 81001; 83735; 85025; 86850; 96365; 96372; C9803; U0003; U0005

== ENCOUNTER 2021-07-12 02:52 | Outpatient (CLI) | payer OTHER, SELFPAY ==
[2021-07-12 02:54] VITALS: BMI 31.8
[2021-07-12 03:11] LABS: Microscopic, Urine URINE MICROSCOPIC (MICROSCOPIC)
[2021-07-12 03:18] VITALS: BP 127/86; PULSE 109; RESP 18; TEMP 36.8; O2SAT 96; BMI 31.8
[2021-07-12 03:21] LABS: Bilirubin,Urine Negative (Negative); Blood, Urine Negative (Negative); Color,Urine YELLOW (Yellow); Glucose,Urine (UA) Negative (Negative); Ketones,Urine Negative (Negative); Leukocyte Esterase,Urine Negative (Negative); Nitrate,Urine Negative (Negative); Protein,Urine Negative (Negative); Urobilinogen,Urine 0.2 EU/dl (0.2)
[2021-07-12 03:23] LABS: Appearance,Urine Slightly Cloudy (Clear)
[2021-07-12 03:32] LABS: Barbiturates Screen,Urine Negative ng/ml (<200)
[2021-07-12 03:33] LABS: Amphetamine/Metha Screen,Urine Negative ng/ml (<1000); Bacteria,Urine 1+ /lpf; Benzodiazepines Screen,Urine Negative ng/ml (<200); Mucus,Urine 1+ /lpf; WBC,Urine Occasional #/hpf (0-3)
[2021-07-12 03:34] LABS: Cannabinoid Screen,Urine Negative ng/ml (<50)
[2021-07-12 03:35] LABS: Cocaine Screen,Urine Negative ng/ml (<300); Methadone Screen,Urine Negative ng/ml (<300)
[2021-07-12 03:36] LABS: Opiate Screen,Urine Negative ng/ml (<300)
[2021-07-12 03:37] LABS: Phencyclidine Screen,Urine Negative ng/ml (<25)
[2021-07-12 04:22] LABS: Basophils % 0.3 % (0.1-2.0); Eosinophils % 0.2 % (0.1-12.0); Hematocrit 36.4 % (37.0-47.0); Hemoglobin 12.8 g/dL (12.2-16.2); Lymphocytes % 22.4 % (10-50); Mean Corpuscular HGB Conc 35.2 g/dL (31.8-35.4); Mean Platelet Volume 7.7 fl (7.4-10.4); Monocytes # 0.3 K/mm3 (0.1-1.0); Monocytes % 3.8 % (1.7-9.3); Neutrophils # 6.5 K/mm3 (1.8-7.8); Neutrophils % 73.3 % (37.0-80.0); Platelet Count 285 K/mm3 (142-424); Red Blood Count 4.14 M/mm3 (4.20-5.40); Red Cell Distribution Width 14.2 % (11.5-17.5); White Blood Count 8.9 K/mm3 (4.8-10.8)
[2021-07-12 04:28] LABS: Alanine Aminotransferase 11 U/L (12-78); Albumin Level 3.7 g/dl (3.5-5.0); Albumin/Globulin Ratio 1.4 (1.1-1.8); Alkaline Phosphatase 62 U/L (38-126); Anion Gap 9.8 mEq/L (5-15); Aspartate Amino Transferase 17 U/L (14-36); Bilirubin,Total 0.2 mg/dl (0.2-1.3); Blood Urea Nitrogen 10 mg/dl (7-17); Carbon Dioxide 25 mmol/L (22.0-30.0); Chloride 104 mmol/L (98-107); Creatinine Clearance Estimated 203 mL/min (50-200); Estimated Glomerular Filt Rate 152 ml/min (>60); GFR (African American) 183 ML/MIN (>60); Globulin 2.7 g/dL (1.3-3.2); Glucose 109 mg/dl (74-100); Potassium 3.8 mmoL/L (3.5-5.1); Sodium 135 mmol/L (136-145); Total Protein,Serum 6.4 g/dl (6.3-8.2)
--- NOTE | 2021-07-12 07:05 | US_ITS ---
PROCEDURE: US GALLBLADDER CLINICAL INDICATION: RUQ pain COMPARISON: No exams were available for comparison FINDINGS: Pancreas: Pancreas is not well delineated at the head and tail. The body has an unremarkable appearance. Liver: Unremarkable. There is appropriate direction of blood flow within a non dilated portal vein. Right kidney: Unremarkable appearing. No hydronephrosis. Gallbladder: Multiple small stones and sludge is present within the gallbladder. No gallbladder wall thickening, pericholecystic fluid, or biliary dilatation is evident. Common bile duct is normal at 2 mm. IMPRESSION: Gallstones and gallbladder sludge. No gallbladder wall thickening pericholecystic fluid or biliary dilatation. Dictated by: Iban Nathan MD 07/12/2021 09:54 Iban Nathan MD in OV 07/12/2021 09:54
[2021-07-12 07:30] VITALS: BP 129/87; PULSE 101; RESP 18; TEMP 36.6; O2SAT 96
--- NOTE | 2021-07-12 08:45 | US_ITS ---
PROCEDURE: US OB LIMITED POSITION CLINICAL INDICATION: abdominal pain COMPARISON: US US OB FOLLOW UP from 07/04/2021 FINDINGS: There is a single live fetus in breech presentation. Placenta is wraparound seen anteriorly and posteriorly and grade 1. The placenta is grade 1. No previa or abruption identified. Cervix is closed measuring 3 cm. CARYN is 11 cm. movement is seen. BPD 26 weeks 5 days. OFD 26 weeks 0 days. AC 26 weeks 3 days. IMPRESSION: Live IUP with BPD at 26 weeks 5 days in breech presentation. Please see above for detail Dictated by: Iban Nathan MD 07/12/2021 10:01 Iban Nathan MD in OV 07/12/2021 12:27
== END 2021-07-12 12:50 | disposition home or self-care (01) ==
LOC: OBOUT 02:53 → OB 02:53
PROVIDERS: PCP Family Medicine; Visit Provider Nurse Practitioner Obstetrics & Gynecology
DX: Z3A.26 26 weeks gestation of pregnancy; O26.892 Other specified pregnancy related conditions, second trimester; R10.9 Unspecified abdominal pain
CPT/HCPCS: 59025; 76705; 76815; 80053; 80305; 81001; 85025; 96365; G0463; J0595

== ENCOUNTER → 2021-09-10 11:32 | Outpatient (CLI) | payer OTHER, SELFPAY | PROVIDERS: Visit Provider Obstetrics & Gynecology | DX: Z34.90 Encounter for supervision of normal pregnancy, unspecified, unspecified trimester (principal) | CPT/HCPCS: 86403 ==

== ENCOUNTER 2021-09-20 18:41 | Outpatient (CLI) | payer OTHER, SELFPAY ==
[2021-09-20 18:54] VITALS: BMI 32.4
[2021-09-20 19:01] LABS: Microscopic, Urine URINE MICROSCOPIC (MICROSCOPIC)
[2021-09-20 19:03] LABS: Appearance,Urine CLEAR (Clear); Bilirubin,Urine Negative (Negative); Blood, Urine Negative (Negative); Color,Urine YELLOW (Yellow); Glucose,Urine (UA) Negative (Negative); Ketones,Urine Negative (Negative); Leukocyte Esterase,Urine 1+ (Negative); Nitrate,Urine Negative (Negative); PH,Urine 6.5 (5.0-8.5); Protein,Urine Negative (Negative); Specific Gravity, Urine <= 1.005 (1.005-1.030); Urobilinogen,Urine 0.2 EU/dl (0.2)
[2021-09-20 19:15] LABS: Amphetamine/Metha Screen,Urine Negative ng/ml (<1000); Barbiturates Screen,Urine Negative ng/ml (<200)
[2021-09-20 19:16] LABS: Benzodiazepines Screen,Urine Negative ng/ml (<200)
[2021-09-20 19:17] LABS: Cannabinoid Screen,Urine Negative ng/ml (<50); Cocaine Screen,Urine Negative ng/ml (<300)
[2021-09-20 19:18] LABS: Methadone Screen,Urine Negative ng/ml (<300); Opiate Screen,Urine Negative ng/ml (<300)
[2021-09-20 19:19] LABS: Phencyclidine Screen,Urine Negative ng/ml (<25)
[2021-09-20 19:35] VITALS: BP 131/91; PULSE 108; RESP 18; TEMP 36.8; O2SAT 96; BMI 32.4
== END 2021-09-20 21:00 | disposition home or self-care (01) ==
LOC: OBOUT 18:43 → OB 18:44
PROVIDERS: PCP Family Medicine; Visit Provider Obstetrics & Gynecology
DX: O36.8130 Decreased fetal movements, third trimester, not applicable or unspecified (principal); Z3A.36 36 weeks gestation of pregnancy
CPT/HCPCS: 59025; 80305; 81001; 87086; 96365; G0463

== ENCOUNTER 2021-09-24 20:55 | Outpatient (CLI) | payer OTHER, SELFPAY ==
[2021-09-24 21:23] VITALS: BMI 32.4
--- NOTE | 2021-09-24 21:29 | HMH.ACPN2 ---
Internal Medicine - PN: Subj *Date: 09/24/21 *Time: 21:29 Interval history: She is a 26-year-old 1 para 0 at 37+ weeks gestational age. She complains of low back pain. She has gestational diabetes. She has been followed by Dr. Combs as well as [facility]. They are planning to deliver her at in about 5 days time. She came in complaining of low back pain. Her cervix is 1 to 2 cm. Nonstress test is reactive. She is having an occasional contraction. There is nothing regular. She does not appear to be in labor. Exam I & O for Last 24 hours: Intake & Output 09/22/21 09/23/21 09/24/21 09/25/21 11:59 11:59 11:59 11:59 Weight 166 lb - Constitutional no acute distress - *Routine HEENT Exam Head: Present: normocephalic Eye: Present: EOMI, PERRL ENT: Present: mucous membranes moist Assessment and Plan (1) False labor before 37 completed weeks of gestation, third trimester Status: Acute Category: Medical Code(s): O47.03 - False labor before 37 completed weeks of gestation, third trimester (2) Gestational diabetes mellitus Status: Acute Category: Medical Code(s): O24.419 - Gestational diabetes mellitus in , unspecified control - Assessment and plan all Dx Assessment and Plan for all problems:: She is having an occasional contraction on the monitor. Her nonstress test is reactive. Her cervix is just 1 to 2 cm. She has gestational diabetes and she is scheduled to be induced in about 5 days time. We will give her a bolus of fluid as well as check her sugars and a CBC and Chem-7. We will give her Stadol for her back pain. We will send her on the way home to [facility].
[2021-09-24 21:32] LABS: Microscopic, Urine URINE MICROSCOPIC (MICROSCOPIC)
[2021-09-24 21:45] LABS: Fetal Membrane Rupture (Rapid) Negative (Negative)
[2021-09-24 21:46] LABS: Appearance,Urine SL CLOUDY (Clear); Bilirubin,Urine Negative (Negative); Blood, Urine Negative (Negative); Color,Urine YELLOW (Yellow); Glucose,Urine (UA) Negative (Negative); Ketones,Urine Negative (Negative); Leukocyte Esterase,Urine TRACE (Negative); Nitrate,Urine Negative (Negative); PH,Urine 6.5 (5.0-8.5); Protein,Urine Negative (Negative); Specific Gravity, Urine 1.015 (1.005-1.030); Urobilinogen,Urine 0.2 EU/dl (0.2)
[2021-09-24 21:50] LABS: Bacteria,Urine 1+ /lpf; RBC,Urine Occasional #/hpf (0-3)
[2021-09-24 21:57] LABS: Amphetamine/Metha Screen,Urine Negative ng/ml (<1000); Benzodiazepines Screen,Urine Negative ng/ml (<200)
[2021-09-24 21:58] LABS: Barbiturates Screen,Urine Negative ng/ml (<200); Cannabinoid Screen,Urine Negative ng/ml (<50)
[2021-09-24 21:59] LABS: Cocaine Screen,Urine Negative ng/ml (<300)
[2021-09-24 22:00] LABS: Methadone Screen,Urine Negative ng/ml (<300); Opiate Screen,Urine Negative ng/ml (<300)
[2021-09-24 22:01] LABS: Phencyclidine Screen,Urine Negative ng/ml (<25)
[2021-09-24 22:28] LABS: Basophils # 0.1 K/mm3 (0-0.2); Basophils % 1.2 % (0.1-2.0); Eosinophils % 0.1 % (0.1-12.0); Hematocrit 39.6 % (37.0-47.0); Hemoglobin 13.6 g/dL (12.2-16.2); Lymphocytes # 1.8 K/mm3 (0.7-4.5); Lymphocytes % 18.9 % (10-50); Mean Corpuscular HGB Conc 34.3 g/dL (31.8-35.4); Mean Corpuscular Hemoglobin 31.8 pg (27.0-31.2); Mean Corpuscular Volume 92.7 fl (81-99); Mean Platelet Volume 8.1 fl (7.4-10.4); Monocytes # 0.4 K/mm3 (0.1-1.0); Monocytes % 4.6 % (1.7-9.3); Neutrophils # 7.1 K/mm3 (1.8-7.8); Neutrophils % 75.2 % (37.0-80.0); Platelet Count 255 K/mm3 (142-424); Red Blood Count 4.27 M/mm3 (4.20-5.40); Red Cell Distribution Width 14.3 % (11.5-17.5); White Blood Count 9.5 K/mm3 (4.8-10.8)
[2021-09-24 22:29] LABS: Anion Gap 8.7 mEq/L (5-15); Blood Urea Nitrogen 6 mg/dl (7-17); Calcium 9.4 mg/dl (8.4-10.2); Carbon Dioxide 21 mmol/L (22.0-30.0); Chloride 108 mmol/L (98-107); Creatinine Clearance Estimated 258 mL/min (50-200); Estimated Glomerular Filt Rate 196 ml/min (>60); GFR (African American) 237 ML/MIN (>60); Glucose 87 mg/dl (74-100); Potassium 3.7 mmoL/L (3.5-5.1); Sodium 134 mmol/L (136-145)
[2021-09-24 22:34] VITALS: BP 141/85; PULSE 103; RESP 18; TEMP 37.1; O2SAT 98; BMI 32.4
== END 2021-09-24 23:07 | disposition home or self-care (01) ==
LOC: OBOUT 20:56 → OB 20:57
PROVIDERS: PCP Family Medicine; Visit Provider Nurse Practitioner Obstetrics & Gynecology
DX: O26.893 Other specified pregnancy related conditions, third trimester (principal); Z3A.37 37 weeks gestation of pregnancy; M54.50 Low back pain, unspecified
CPT/HCPCS: 59025; 80048; 80305; 81001; 84112; 85025; 87086; 96365; G0463

== ENCOUNTER → 2021-09-27 11:27 | Outpatient (CLI) | payer OTHER, SELFPAY ==
[2021-09-28 06:37] LABS: Covid-19 Nasal PCR Sendout Lex NOT DETECTED
== END ==
PROVIDERS: Visit Provider Nurse Practitioner
DX: Z20.822 Contact with and (suspected) exposure to COVID-19 (principal)
CPT/HCPCS: C9803; U0004; U0005

== ENCOUNTER → 2021-09-27 12:26 | Outpatient (CLI) | payer OTHER, SELFPAY ==
--- NOTE | 2021-09-27 12:27 | US_ITS ---
FINAL REPORT CLINICAL HISTORY: BPP-gest diabetes- hx of bleeding FINDINGS: There is a single live intrauterine gestation. Presentation is cephalic. The cervix is closed and measures 3.3 cm. Placenta is fundal. Cardiac activity is confirmed at 148 bpm. Fetus is active. Three-vessel cord with satisfactory umbilical cord insertion. Four-chamber heart is noted. CARYN: 9.81 which is normal. BREATHIN MOVEMENT: 2 TONE: 2 FLUID VOLUME: 2 BPP SCORE: 8 IMPRESSION: Single living IUP with an gestation age of 37 weeks 5 days. BPP SCORE: 8 Reviewed, Interpreted and Dictated by Brenden Botello III, MD Transcribed by Carolin Amin Authenticated by Brenden Botello III, MD on 09/27/2021 02:12:20 PM [facility]
== END ==
PROVIDERS: PCP Family Medicine; Visit Provider Obstetrics & Gynecology
DX: O24.419 Gestational diabetes mellitus in pregnancy, unspecified control (principal)
CPT/HCPCS: 76819

== ENCOUNTER 2021-10-15 19:37 | Emergency (ER) | payer OTHER, SELFPAY ==
[2021-10-15 19:38] VITALS: BP 126/89; PULSE 76; RESP 16; TEMP 36.8; O2SAT 99; BMI 28.9
--- NOTE | 2021-10-15 20:25 | HMH.EDNVD ---
ED Disposition Clinical Impression: Cholelithiasis Qualifiers: Cholelithiasis location: gallbladder Cholecystitis presence: without cholecystitis Biliary obstruction: without biliary obstruction Qualified Code(s): K80.20 - Calculus of gallbladder without cholecystitis without obstruction Disposition: Home, Self-Care Condition on Discharge: Good Instructions: DI for Gallstones Additional Instructions: call surg in am for follow up Prescriptions: Ondansetron [Zofran 4mg ODT] 4 mg PO TIDP PRN #15 tab PRN Reason: Nausea And Vomiting Transmission Status: Pending to [id number] Referrals: Sterling Salinas MD [Primary Care Provider] - Brenden Moreno MD [Staff Physician] - Denton Melendrez MD [Staff Physician] - - Critical Care Critical Care Time: No Attestation: On 10/15/21, the high probability of a clinically significant, sudden or life threatening deterioration of the following system(s) required my full and direct attention, intervention and personal management. The time I documented below is in addition to time spent performing reported procedures but includes the following listed in this critical care notation. Medical Decision Making - Medical Records Medical records reviewed: Yes: I reviewed the patient's medical records. - Zeeshan Inquiry Pt receiving controlled substance: No Vital Signs: 10/15/21 19:38 Temperature 98.2 F Temperature Source Oral Pulse Rate [Left] 76 Respiratory Rate 16 Blood Pressure [Right Arm] 126/89 Blood Pressure Mean [Right Arm] 101 02 Sat by Pulse Oximetry 99 Oxygen Delivery Method Room Air - Lab Data Lab results reviewed: Yes: I reviewed the patient's lab results. Lab Results 10/15/21 19:55: WBC 5.8, RBC 4.96, Hgb 15.4, Hct 47.1 H, MCV 95.0, MCH 31.1, MCHC 32.7, RDW 13.2, Plt Count 311, MPV 7.5, Neut % (Auto) 44.8, Lymph % (Auto) 49.0, [place] % (Auto) 5.3, Eos % (Auto) 1.0, Baso % (Auto) 5.1 H, Neut # (Auto) 2.6, Lymph # (Auto) 2.8, [place] # (Auto) 0.3, Eos # (Auto) 0.1, Baso # (Auto) 0.3 H 10/15/21 19:55: Sodium 136, Potassium 3.9, Chloride 102, Carbon Dioxide 24, Anion Gap 13.9, BUN 15, Creatinine 0.60, Estimated Creat Clear 159, Estimated GFR 123, Est GFR ( Amer) 149, Glucose 96, Calcium 8.9, Total Bilirubin 0.4, AST 25, ALT 24, Alkaline Phosphatase 102, Total Protein 7.0, Albumin 4.1, Globulin 2.9, Albumin/Globulin Ratio 1.4, Amylase 80 10/15/21 19:55: Lipase 111 Result diagrams: 10/15/21 19:55 10/15/21 19:55 Medical Decision Narrative: has known cholelithiasis and stable exam and labs willrefer to surg Nausea/Vomiting/Diarrhea HPI - General Chief complaint: Abdominal Pain Stated complaint: abd pain,, thinks it is gall bladder Time Seen by Provider: 10/15/21 20:25 Mode of Arrival: Family Vehicle Source of Information: Patient, Medical Record Limitations: No Limitations Description of Symptoms (Recalled from ER Triage Doc. by RN): pt reports to have a hx of gallbladder issues discovered during her . she was told she had stones and sludge and that she should address it after she delivered the baby. she is 2 weeks post and having the same abdominal pain as before located in the right upper quadrant. the pt states the pain comes and goes. no pain reported at this time - History of Present Illness HPI Narrative: rt upper abd pain with hx of cholelithiasis - is 2 weeks -gas nausea MD complaint: nausea, abdominal pain Onset (ago): day(s) Associated Abdominal Pain: Yes Location of pain: RUQ Severity: moderate Consistency: intermittent Associated symptoms: denies other symptoms - Related Data Home Medications Medication Instructions Recorded Confirmed docosahexaenoic acid 200 mg capsule mg PO 03/02/21 09/20/21 blood sugar diagnostic See Rx Instructions .ROUTE 08/23/21 09/20/21 .MEDSUPPLY #10 each insulin glargine 100 unit/mL (3 ml SQ 08/23/21 09/20/21 mL) subcutaneous pen lancets 33 gauge See Rx Inst
[2021-10-15 20:38] LABS: Basophils # 0.3 K/mm3 (0-0.2); Basophils % 5.1 % (0.1-2.0); Eosinophils # 0.1 K/mm3 (0.0-0.4); Hematocrit 47.1 % (37.0-47.0); Hemoglobin 15.4 g/dL (12.2-16.2); Lymphocytes # 2.8 K/mm3 (0.7-4.5); Mean Corpuscular HGB Conc 32.7 g/dL (31.8-35.4); Mean Corpuscular Hemoglobin 31.1 pg (27.0-31.2); Mean Platelet Volume 7.5 fl (7.4-10.4); Monocytes # 0.3 K/mm3 (0.1-1.0); Monocytes % 5.3 % (1.7-9.3); Neutrophils # 2.6 K/mm3 (1.8-7.8); Neutrophils % 44.8 % (37.0-80.0); Platelet Count 311 K/mm3 (142-424); Red Blood Count 4.96 M/mm3 (4.20-5.40); Red Cell Distribution Width 13.2 % (11.5-17.5); White Blood Count 5.8 K/mm3 (4.8-10.8)
[2021-10-15 20:43] LABS: Chloride 102 mmol/L (98-107); Potassium 3.9 mmoL/L (3.5-5.1); Sodium 136 mmol/L (136-145)
[2021-10-15 20:46] LABS: Alanine Aminotransferase 24 U/L (12-78); Albumin Level 4.1 g/dl (3.5-5.0); Albumin/Globulin Ratio 1.4 (1.1-1.8); Alkaline Phosphatase 102 U/L (38-126); Amylase 80 U/L (30-110); Anion Gap 13.9 mEq/L (5-15); Aspartate Amino Transferase 25 U/L (14-36); Bilirubin,Total 0.4 mg/dl (0.2-1.3); Blood Urea Nitrogen 15 mg/dl (7-17); Calcium 8.9 mg/dl (8.4-10.2); Carbon Dioxide 24 mmol/L (22.0-30.0); Creatinine Clearance Estimated 159 mL/min (50-200); Estimated Glomerular Filt Rate 123 ml/min (>60); GFR (African American) 149 ML/MIN (>60); Globulin 2.9 g/dL (1.3-3.2); Glucose 96 mg/dl (74-100); Lipase 111 U/L (23-300)
[2021-10-15 21:10] VITALS: BP 126/89; PULSE 76; RESP 14; TEMP 36.8; O2SAT 99
== END 2021-10-15 21:19 | disposition home or self-care (01) ==
PROVIDERS: Emergency Provider Emergency Medicine; PCP Internal Medicine Adolescent Medicine
DX: K80.20 Calculus of gallbladder without cholecystitis without obstruction (principal); I10 Essential (primary) hypertension; G40.909 Epilepsy, unspecified, not intractable, without status epilepticus; Z79.4 Long term (current) use of insulin; Z79.899 Other long term (current) drug therapy; Z88.2 Allergy status to sulfonamides; Z88.8 Allergy status to other drugs, medicaments and biological substances; Z87.440 Personal history of urinary (tract) infections
CPT/HCPCS: 80053; 82150; 83690; 85025; 99283

== ENCOUNTER → 2021-11-17 09:01 | Outpatient (CLI) | payer OTHER, SELFPAY ==
[2021-11-17 09:20] LABS: Basophils # 0.1 K/mm3 (0-0.2); Basophils % 1.3 % (0.1-2.0); Eosinophils % 0.9 % (0.1-12.0); Hematocrit 41.5 % (37.0-47.0); Hemoglobin 14.5 g/dL (12.2-16.2); Lymphocytes # 1.7 K/mm3 (0.7-4.5); Lymphocytes % 37.4 % (10-50); Mean Corpuscular HGB Conc 34.9 g/dL (31.8-35.4); Mean Corpuscular Hemoglobin 31.1 pg (27.0-31.2); Mean Corpuscular Volume 89.2 fl (81-99); Mean Platelet Volume 7.4 fl (7.4-10.4); Monocytes # 0.3 K/mm3 (0.1-1.0); Monocytes % 7.1 % (1.7-9.3); Neutrophils # 2.4 K/mm3 (1.8-7.8); Neutrophils % 53.4 % (37.0-80.0); Platelet Count 260 K/mm3 (142-424); Red Blood Count 4.65 M/mm3 (4.20-5.40); Red Cell Distribution Width 13.5 % (11.5-17.5); White Blood Count 4.5 K/mm3 (4.8-10.8)
[2021-11-17 09:38] LABS: Chloride 106 mmol/L (98-107); Potassium 4.3 mmoL/L (3.5-5.1); Sodium 139 mmol/L (136-145)
[2021-11-17 09:40] LABS: Amylase 59 U/L (30-110); Blood Urea Nitrogen 12 mg/dl (7-17); Estimated Glomerular Filt Rate 103 ml/min (>60); GFR (African American) 124 ML/MIN (>60)
[2021-11-17 09:41] LABS: Alanine Aminotransferase 47 U/L (12-78); Albumin Level 4.3 g/dl (3.5-5.0); Albumin/Globulin Ratio 1.7 (1.1-1.8); Alkaline Phosphatase 75 U/L (38-126); Anion Gap 11.3 mEq/L (5-15); Aspartate Amino Transferase 38 U/L (14-36); Bilirubin,Total 0.7 mg/dl (0.2-1.3); Calcium 8.9 mg/dl (8.4-10.2); Carbon Dioxide 26 mmol/L (22.0-30.0); Globulin 2.5 g/dL (1.3-3.2); Glucose 103 mg/dl (74-100); Lipase 139 U/L (23-300); Total Protein,Serum 6.8 g/dl (6.3-8.2)
== END ==
PROVIDERS: Visit Provider Surgery
DX: K80.20 Calculus of gallbladder without cholecystitis without obstruction (principal)
CPT/HCPCS: 36415; 80053; 82150; 83690; 85025; C9803; U0003; U0005

== ENCOUNTER 2021-11-19 05:59 | Day surgery (SDC) | payer OTHER, SELFPAY ==
[2021-11-15 08:48] VITALS: BMI 30.2
[2021-11-19] VITALS (14 sets, daily range): BP systolic 107–149; BP diastolic 58–89; PULSE 64–93; RESP 16–18; TEMP 36.3–43; O2SAT 94–100
[2021-11-19 06:35] LABS: Urine Pregnancy, HCG Qual. Negative (Negative)
--- NOTE | 2021-11-19 06:55 | P.PN_ITS ---
[facility] Anesthesia Checklist - Patient Identification Patient Identification: Arm Band - Structural Data Admitted From: Home Planned Operative Procedure/s: KokoDamián bales Consent for Planned Operative Procedure(s) Verified: Yes - NPO Status Verified Time NPO: 00:00 - Additional verifications Anesthesia Reactions: No Hx Blood Transfusions: No Blood Transfusion Reaction: No - Airway Assessment C-Spine Mobility Assessed: Yes TMJ Mobility Assessed: Yes Dentition: Good Dentition - Neurological Assessment Level of Consciousness: Awake Hx Seizures: Yes (Childhood) Numbness or tingling in extremities: No - Anesthesia Plan Anesthesia Risk discussed: Yes Anesthesia Plan: Verified ASA Class: II Anesthesia Type: General [facility] History I have reviewed the patient's past medical history: Yes Medical History: Reports:: Hypertension, Seizures, Urinary Tract Infection, Valvular Heart Disease Denies:: Cancer, Diabetes Mellitus Type 1, Diabetes Mellitus Type 2, Internal Pacemaker, MRSA *Have you ever received a pneumonia vaccine?: No *Have you received a flu vaccine this season?: No Other Medical History: Denies: Blood Transfusion Reaction Anesthesia experience/problems:: None Laterality Cases: Bilateral: Myringotomy (Ear Tubes) Other Surgeries: Yes: Other. No: , Pacemaker Amputation: No Fractures: No - *Social History Last grade of school completed: Some college Smoking Status: Never smoker Alcohol Intake: never Alcohol Intake Frequency:: other Substance Use Type: denies use *Occupational Status:: unemployed Housing: house Household Members: spouse, children *Travel in the last 8 weeks: None Family Hx:: No significant family history, Diabetes, Heart Attack, Hypertension, Hyperlipidemia, Stroke, Thyroid Disorder EDUCATION PROFESSOR history: No EDUCATION PROFESSOR history
--- NOTE | 2021-11-19 08:34 | HMH.OPNOTE ---
Date of procedure: 11/19/21 Pre-op Diagnosis:: Symptomatic gallstones Post-op Diagnosis:: Same Procedure performed:: Laparoscopic cholecystectomy Surgeon:: Brenden Moreno MD WAREHOUSE DELIVERY MANAGER:: Kun Abbott Anesthesia: FREDIS Estimated blood loss (mL): 15 Clinical Note:: Patient is a pleasant 26-year-old female who is from normal vaginal delivery on 10/01/2021. She states that when she was approximately 24 to 25 weeks into her she had developed some quite severe stomach pains. She underwent gallbladder ultrasound on 07/12/2021 which revealed gallstones and gallbladder sludge with normal common bile duct. Subsequently she has had some intermittent pains usually occurring in the right upper quadrant. This is often post prandial within several minutes. She also does have some postprandial diarrhea. Of note, the patient has a history of VSD and bicuspid aortic valve which has been followed by pediatric cardiology at . Operative findings:: She had somewhat distended gallbladder with tiny gallstones. There were omental adhesions to the gallbladder and adjacent liver. She had mild fatty infiltration of the liver. She was noted to have incidental small to moderate bilateral direct and indirect inguinal hernias. Operative note:: Consent was obtained. Patient was taken to the operating room. She was positioned supine position. General anesthesia was induced via endotracheal tube. Abdomen was prepped and draped in the standard surgical fashion. Subumbilical incision was made. While performing abdominal wall lift Veress needle was inserted. CO2 pneumoperitoneum was achieved to 15 mmHg. 11 mm optical trocar was inserted at the umbilicus. Intraperitoneal contents were visualized. She had mild fatty infiltration of the liver. She was positioned in reverse Trendelenburg left side down. A couple of 5 mm trochars were inserted in the right upper abdomen. 10 mm trocar was inserted in the epigastrium. Liver was elevated and gallbladder was retracted anteriorly. There were some omental adhesions to the lateral edge of the gallbladder and adjacent liver. These were taken down using DEANN ultrasonic harmonic taz. Infundibulum of the gallbladder was retracted anterolaterally. Blunt dissection was carried out the neck of the gallbladder. Ultimately the cystic duct and cystic artery were clearly identified in the critical view of safety. The cystic duct was isolated, multiply clipped, and sharply divided. Cystic artery was carefully coagulated with DEANN ultrasonic robotic taz and divided. The gallbladder was dissected free from the liver in a retrograde fashion using DEANN ultrasonic harmonic taz. There was a tiny amount of unavoidable spillage of bile during the dissection process which was suctioned free. Gallbladder was placed within an Endo Catch retrieval device and removed the peritoneal cavity via the umbilical trocar site. Irrigation and suctioning was performed of the gallbladder fossa and perihepatic space. Fascia at the umbilicus was closed with 0 Vicryl suture. Anterior fascia at the epigastric site was closed with 0 Vicryl suture. Local anesthetic was infiltrated. Skin incisions were closed with 4-0 Monocryl in subcuticular fashion. Steri-Strips and dressings were applied. Condition: stable Disposition: PACU Specimens:: Gallbladder and contents Complications:: None immediately apparent
--- NOTE | 2021-11-19 08:41 | HMH.ANESI ---
[facility] Anesthesia Record Part I Intake, IV Amount: 1,200 Estimated blood loss (mL): 10 Urine output (mL): 0 Blood Pressure: 140/86 SaO2: 97 Pulse Rate: 91 Respiratory Rate: 16 Temperature: 98.5 F Patient is:: Drowsy, Stable Stable to PACU at:: 08:35
--- NOTE | 2021-11-19 08:55 | PC.NURSE ---
50mcg Fentanyl administered per Lalit,[employer]ER [employer] PLATER verbal order
--- NOTE | 2021-11-19 14:18 | HMH.ANESII ---
[facility] Anesthesia Record Part II Discharge Time: 09:25 Destination: Surgical Day Care (OP Surgery) PACU nurse assessment reviewed?: Yes Patient Condition:: Good Anesthesia Complications:: None Swallowing reflex intact?: Yes Cyanosis?: No Blood Pressure: 116/61 Pulse Rate: 83 Temperature: 98.5 F Mental Status: Alert & Oriented Pain level:: 0 Nausea and/or vomitting:: None Intake, IV Amount: 0
== END 2021-11-19 10:26 | disposition home or self-care (01) ==
LOC: OR 06:00
PROVIDERS: PCP Internal Medicine Adolescent Medicine; Visit Provider Surgery
PROC: 0FT44ZZ Resection of Gallbladder, Percutaneous Endoscopic Approach (ICD-10-PCS; CPT 47562; principal; 2021-11-19 07:30)
DX: K80.80 Other cholelithiasis without obstruction (principal); K66.0 Peritoneal adhesions (postprocedural) (postinfection); I10 Essential (primary) hypertension; R56.9 Unspecified convulsions; Z88.2 Allergy status to sulfonamides; Z86.32 Personal history of gestational diabetes; Z87.59 Personal history of other complications of pregnancy, childbirth and the puerperium
CPT/HCPCS: 47562; 81025; 96374; J2405; J2710

== ENCOUNTER 2022-03-05 18:45 | Emergency (ER) | payer OTHER, SELFPAY ==
[2022-03-05 18:53] VITALS: BP 125/79; PULSE 92; RESP 18; TEMP 36.7; O2SAT 96; BMI 31.2
--- NOTE | 2022-03-05 19:12 | HMH.EDUTC ---
[facility] Dis[place] Clinical Impression: Viral syndrome Disposition: Home, Self-Care Condition on Discharge: Good Instructions: DI for COVID-19 (Suspected or Confirmed ), Preventing the Spread of Coronavirus Discharge Instructions Additional Instructions: Drink plenty of fluids. Take tylenol for pain or fever. Return if you begin to have difficulty breathing. Follow up with your regular doctor. GO TO THE ER FOR ANY WORSENING SYMPTOMS Quarantine until you know the results of your covid-19 test. Notify your school or workplace of your results and follow their instructions regarding return to work/school. Referrals: Sterling Salinas MD [Primary Care Provider] - Time of Disposition: 19:30 Medical Decision Making - Medical Records Medical records reviewed: No: I reviewed the patient's medical records. - Zeeshan Inquiry Pt receiving controlled substance: No Vital Signs: 03/05/22 18:53 03/05/22 19:31 Temperature 98.1 F 98.1 F Temperature Source Oral Pulse Rate 92 H Pulse Rate [Left] 92 H Respiratory Rate 18 18 Blood Pressure 125/79 Blood Pressure [Right Arm] 125/79 Blood Pressure Mean [Right Arm] 94 02 Sat by Pulse Oximetry 96 - Lab Data Lab results reviewed: Yes: I reviewed the patient's lab results. Lab Results 03/05/22 18:57: Strep Scn Rapid Clinic Negative Orders (Tests/Meds): ORDERS Category Date Time Status Covid-19 Nasal PCR ([facility]) Routine Lab 03/05/22 18:56 Received Strep Screen Confirmation Stat Micro 03/05/22 18:57 Received [facility] HPI - General Stated complaint: runny nose and congestion Time Seen by Provider: 03/05/22 19:12 Mode of Arrival: Ambulatory Source of Information: Patient Limitations: No Limitations Description of Symptoms (Recalled from Triage Doc. by RN): patient comes in for sinus infection symptoms. dry throat, runny nose, congestion. symptoms began today. HEENT Symptoms (Recalled from RN notes): Yes Resp Symptoms (Recalled from RN notes): Yes Skin Symptoms (Recalled from RN notes): No MS Symptoms (Recalled from RN notes): No Functional Status (Recalled from RN notes): n/a - History of Present Illness Provider Complaint: she states that since yesterday she has had a dry throat and sinus pressure. She denies any other symptoms. She has been exposed to covid-19 - Related Data Previous Rx's Medication Instructions Recorded Hydrocod/Acet 5/325 mg [[place] 1 - 2 tab PO Q6HP PRN #17 tab 11/19/21 5/325mg tablet] Allergies Allergy/AdvReac Type Severity Reaction Status Date / Time cefaclor [facility] Allergy Verified 12/18/21 09:01 Sulfa (Sulfonamide Allergy Verified 12/18/21 09:01 Antibiotics) - Worker's Comp Is this a Worker's Comp case?: No [facility] History - Hepatitis A Screen Attestation statement:: This patient has been screened for Hepatitis A risk factors. I have reviewed the patient's past medical history: Yes Medical History: Reports:: Hypertension, Seizures, Urinary Tract Infection, Valvular Heart Disease Denies:: Cancer, Diabetes Mellitus Type 1, Diabetes Mellitus Type 2, Internal Pacemaker, MRSA Other Medical History: Denies: Blood Transfusion Reaction Comment: VSD Laterality Cases: Bilateral: Myringotomy (Ear Tubes) Other Surgeries: Yes: Other. No: , Pacemaker Amputation: No Fractures: No Comment: EAR TUBES CHILD. WISDOM TEETH REMOVAL---2016 - Social History Smoking Status: Never smoker Alcohol Intake: never Alcohol Intake Frequency:: other Substance Use Type: denies use Occupational Status: unemployed Housing: house Household Members: spouse, children Family Hx:: No significant family history, Diabetes, Heart Attack, Hypertension, Hyperlipidemia, Stroke, Thyroid Disorder EDITING INTERNSHIP history: No EDITING INTERNSHIP history - Pediatric Specific History Comment: premature with VSD, bicuspid aortic valve problem ROS Obtained: Yes All systems reviewed & no additional complaints - Constitut
[2022-03-05 19:13] LABS: UTC Strep Screen (Rapid) Negative (Negative)
[2022-03-05 19:31] VITALS: BP 125/79; PULSE 92; RESP 18; TEMP 36.7
== END 2022-03-05 19:33 | disposition home or self-care (01) ==
PROVIDERS: Emergency Provider Nurse Practitioner Family; PCP Internal Medicine Adolescent Medicine
DX: B34.9 Viral infection, unspecified (principal); N39.0 Urinary tract infection, site not specified; Z20.822 Contact with and (suspected) exposure to COVID-19; I10 Essential (primary) hypertension; G40.909 Epilepsy, unspecified, not intractable, without status epilepticus; I38 Endocarditis, valve unspecified; Q21.0 Ventricular septal defect; Z82.49 Family history of ischemic heart disease and other diseases of the circulatory system; Z83.438 Family history of other disorder of lipoprotein metabolism and other lipidemia; Z79.899 Other long term (current) drug therapy; Z88.2 Allergy status to sulfonamides; Z88.8 Allergy status to other drugs, medicaments and biological substances
CPT/HCPCS: 87880; 99213; C9803; G0463; U0003; U0005

== ENCOUNTER → 2022-05-27 09:38 | Outpatient (CLI) | payer OTHER, SELFPAY ==
[2022-05-27 11:50] LABS: HCG,Quantitative < 2 mIU/ml (0-5.42)
== END ==
PROVIDERS: PCP Internal Medicine Adolescent Medicine; Visit Provider Obstetrics & Gynecology
DX: N92.6 Irregular menstruation, unspecified (principal)
CPT/HCPCS: 36415; 84702

== ENCOUNTER → 2023-07-14 07:48 | Outpatient (CLI) | payer OTHER, SELFPAY ==
[2023-07-14 09:55] LABS: Chloride 106 mmol/L (98-107); Potassium 3.7 mmoL/L (3.5-5.1); Sodium 138 mmol/L (136-145)
[2023-07-14 09:58] LABS: Anion Gap 11.7 mEq/L (5-15); Blood Urea Nitrogen 9 mg/dl (7-17); Carbon Dioxide 24 mmol/L (22.0-30.0); Estimated Glomerular Filt Rate 101 ml/min (>60); GFR (African American) 122 ML/MIN (>60)
[2023-07-14 09:59] LABS: Glucose 104 mg/dl (74-100)
== END ==
PROVIDERS: Internal Medicine; PCP Internal Medicine Adolescent Medicine; Visit Provider Pediatrics
DX: I50.30 Unspecified diastolic (congestive) heart failure (principal)
CPT/HCPCS: 36415; 80048

== ENCOUNTER 2024-11-29 09:28 | Outpatient (CLI) | payer OTHER, SELFPAY ==
[2024-11-29 10:32] LABS: Anion Gap 15.1 mEq/L (5-15); Blood Urea Nitrogen 10 mg/dl (7-17); Calcium 9.3 mg/dl (8.4-10.2); Carbon Dioxide 22 mmol/L (22.0-30.0); Chloride 106 mmol/L (98-107); Estimated Glomerular Filt Rate 148 ml/min (>60); GFR (African American) 179 ML/MIN (>60); Glucose 107 mg/dl (74-100); Potassium 4.1 mmoL/L (3.5-5.1); Sodium 139 mmol/L (136-145)
== END 2024-11-29 23:59 | disposition home or self-care (01) ==
LOC: LAB 09:29
PROVIDERS: PCP Internal Medicine Adolescent Medicine; Visit Provider Internal Medicine Cardiovascular Disease
DX: Q21.0 Ventricular septal defect (principal); Q23.81 Bicuspid aortic valve; I50.20 Unspecified systolic (congestive) heart failure
CPT/HCPCS: 36415; 80048

== ENCOUNTER 2025-03-02 09:43 | Outpatient (CLI) | payer OTHER, SELFPAY ==
--- OUTSIDE RECORDS SUMMARY | 2025-03-02 09:47 | XMS_ITS | Clinical Summary ---
Author Organization [facility] Address [address] [place] [address] Care Team Providers Care Makeup Instructor Name Role Phone Pamella Salazar RN Unavailable Unavailable Davina Perrin GUEST SERVICES DIRECTOR Unavailable [phone] Nancy Wise RN Unavailable Unavailable Daryl Donald MD Unavailable Nathan Jensen MD Unavailable [phone] Sterling Salinas MD Primary Care Provider + [phone] Allergies Active Allergy Reactions Criticality Noted Date Comments Cefaclor Hives,Unknown - Berenice ent states they do not know rxn details Medium 09/03/2012 Sulfacetamide Hives,Unknown - Berenice ent states they do not know rxn details Medium 09/03/2012 Medications Aviane 0.1-20 MG-MCG tablet Take 1 tablet by mouth 1 (one) time each day. 10/29/2022 Active acetaminophen (Tylenol) 325 MG tablet Take 2 tablets (650 mg) by mouth every 6 (six) hours if needed. Active omega-3 (Fish Oil) 500 MG capsule Take 4 capsules by mouth in the morning and 4 capsules before bedtime. 06/24/2024 Active cyanocobalamin 1000 MCG tablet Take 1 tablet by mouth daily. Active losartan (Cozaar) 25 MG tablet Take 1 tablet by mouth daily. 90 tablet 3 11/18/2024 Active metoprolol succinate XL (Toprol-XL) 50 MG 24 hr tablet Take 1 tablet by mouth daily. Do not crush or chew. 90 tablet 3 11/18/2024 Active spironolactone (Aldactone) 25 MG tablet Take 1 tablet by mouth daily. 90 each 3 11/18/2024 Active Active Problems Problem Noted Date Diagnosed Date Congestive heart failure wit h LV diastolic dysfunction, NYHA class 2 03/27/2023 Encounter for general brinda anderson and advice on contraceptive management 03/16/2023 Assessment & Plan (03/16/2023 12:26 PM EDT): Discussed options for contraception including pills, injectable contraception, LARCs, and surgical sterilization. Discussed that surgical sterilization is permanent and not reversible in the future should she change her mind regarding childbearing. She would like to consider her options further at this time. DAYSI signed this visit reviewing permanency of surgical sterilization. She will call the office should she desire a LARC or permanent sterilization. Gestational diabetes mellitus (GDM) in third tri mester 10/01/2021 Hypothyroidism 10/01/2021 Maternal condition during labor 09/30/2021 Placenta previa antepartum 07/05/2021 Murmur 07/05/2021 Bicuspid aortic valve 07/05/2021 VSD (ventricular septal defect) 07/05/2021 Gastroesophageal reflux disease without esophagi tis 07/05/2021 Recurrent urinary tract infection 07/05/2021 Seizures 07/05/2021 Immunizations Immunization Administration Dates Next Due Influenza, Unspecified 05/23/2022 [employer] COVID-19 Vaccine (Purple Cap) 12 + 10/06/2020,09/15/2020 Tdap 02/13/2024,08/06/2021 Family History Medical History Relation Name Comments Diabetes Father Eduardo Diabetes Maternal Grandfather Kaz marnie Diabetes type II Maternal Grandfather Kaz marnie Heart attack Maternal Grandfather Kaz marnie Heart disease Maternal Grandfather Kaz marnie Arrhythmia Maternal Grandmother Marnie marnie Diabetes Maternal Grandmother Marnie marnie Heart disease Maternal Grandmother Marnie marnie Heart murmur Maternal Grandmother Marnie marnie Hypertension Maternal Grandmother Marnie marnie Diabetes Mother's Brother Mateus marnie Hypertension Mother's Brother Mateus marnie Diabetes Mother's Sister 1 Maddy Hypertension Mother's Sister 1 Maddy Stroke Mother's Sister 1 Maddy Diabetes Mother's Sister 2 Bonnie jim Hypertension Mother's Sister 2 Bonnie ijm Heart attack Other Asthma Sibling Relation Name Status Comments Father Eduardo Maternal Grandfather Kaz dye Maternal Grandmother Marnie dye Mother's Brother Mateus dye Mother's Sister 1 Maddy Mother's Sister 2 Bonnie jim Alive Other Sibling Social History Tobacco Use Types Packs/Day Years Used Date Smoking Tobacco: Never Passive Smoke Exposure: Yes Smokeless Tobacco: Never Tobacco Cessation:Counseling Given: Not Answered Alcohol Use Standard Drinks/Week Comments Never 0 (1 standard drink = 0.6 oz pur e alcohol) PHQ-2 Answer Date Recorded Patient Health Questionnaire-2 Score 0 11/18/2024 [place] Depression Scale Answer Date Recorded [place] Depression Scale Total 2 11/12/2021 The thought of harming myself has occurred to me . Never 11/12/2021 PHQ-9 Answer Date Recorded Patient Health Questionnaire-9 Score 0 11/18/2024 PHQ-2A Answer Date Recorded Patient Health Questionnaire-2 Score 0 03/27/2023 Comments No Sex and Gender Information Value Date Recorded Sex Assigned at Not on file Legal Sex Female 7:33 PM EDT Gender Identity Not on file Sexual Orientation Not on file Last Filed Vital Signs Vital Sign Reading Time Taken Comments Blood Pressure 128/79 11/18/2024 10:11 AM EDT Pulse 85 11/18/2024 10:11 AM EDT Temperature 37.2 C (99 F) 10/02/2021 11:50 PM EST Respiratory Rate 18 03/10/2023 1:24 PM EDT Oxygen Saturation 95% 11/18/2024 10:11 AM EDT Inhaled Oxygen Concentration - - Weight 75.1 kg (165 lb 9.1 oz) 11/18/2024 10:11 AM EDT Height 154.9 cm (5' 1 ) 11/18/2024 10:11 AM EDT Body Mass Index 31.28 11/18/2024 10:11 AM EDT Plan of Treatment Upcoming Encounters Date Type Department Care Team (Late st Contact Info) Description 11/17/2025 9:30 AM EDT Appointment Cardiac Imaging [address] [place] [address] 11/17/2025 11:40 AM EDT Office Visit [facility] [address] [place] [address] Erica Alfred MD [address] [place] [address] Health Maintenance Due Date Last Done Comments [facility]-HIV Screening 1997 [facility]-Hepatitis C Screening 1997 [facility]-Infant/Child/Adol SDOH Screenings 1997 [facility]-Varicella Vaccines (1 of 2 - 13+ 2-dose series) 2010 HPV Vaccines (1 - 3-dose series) 2012 [facility]- SDOH Screenings 2015 [facility]-Adult SDOH Screenings 2015 [facility]-Hepatitis B Vaccines (1 of 3 - 19+ 3-dose series) 2016 [facility]-Pneumococcal Vaccine: Pediatrics (0 to 5 Years) and At-Risk Patients (6 to 49 Years) (1 of 2 - PCV) 2016 [facility]-Pap Smear 2018 [id number] Vaccine (3 - 2023- season) 2024 10/06/2020, 09/15/2020 [facility]-Influenza Vaccine (#1) 2025 05/23/2022 [facility]-Depression Screening 11/18/2025 025, 11/18/2024, 11/12/2021 [facility]-DTaP,Tdap,and Td Vaccines (3 - Td or Tdap) 02/12/2034 02/13/2024, 08/06/2021 [facility]-Zoster Vaccines (1 of 2) 2047 [facility]-Obesity Intervention Completed 025, 11/13/2023, 06/30/2023, Additional history exists [facility]-HIB Vaccines Aged Out No longer e ligible based on patient's age to complete this topic [facility]-Hepatitis A Vaccines Aged Out No longer eligible based on patient's age to complete this topic [facility]-IPV Vaccines Aged Out No longer e ligible based on patient's age to complete this topic [facility]-Rotavirus Vaccines Aged Out No lo nger eligible based on patient's age to complete this topic Insurance [employer] [facility] MEDICAID Advance Directives * Full Code (Latest Code Status on File) Date Activated Date Inactivated Comments 09/30/2021 9:31 PM 10/03/2021 4:45 PM Question Answer Comments Patient has decision-making capacity? Yes * Full Code Date Activated Date Inactivated Comments 07/05/2021 1:17 AM 07/09/2021 6:11 PM Question Answer Comments Patient has decision-making capacity? Yes Care Teams Makeup Instructor Relationship Specialty Start Date End Date Sterling Salinas MD [address] [place] [address] PCP - General Internal Medicine 12/31/22 Pamella Salazar RN [facility] Registered Nurse 05/08/22 Davina Perrin APRN [address] [place] [address] Nurse Practitioner Internal Medicine 05/08/22 Nancy Wise RN [facility] Registered Nurse Cardiology 05/08/22 Daryl Donald MD [address] [place] [address] Consulting Physician Pediatric Cardiology 06/19/22 Nathan Jensen MD [address] [place] [phone] Consulting Physician Cardiology 10/23/22
[2025-03-02 10:11] LABS: Hematocrit 41.7 % (37.0-47.0); Hemoglobin 14.1 g/dL (12.2-16.2); Immature Granulocytes % 0.2 %; Mean Corpuscular HGB Conc 33.8 g/dL (31.8-35.4); Mean Corpuscular Hemoglobin 30.0 pg (27.0-31.2); Mean Corpuscular Volume 88.7 fl (81-99); Nucleated Red Blood Cells % 0 %; Platelet Count 247 K/mm3 (142-424); Red Blood Count 4.70 M/mm3 (4.20-5.40); Red Cell Distribution Width-SD 39.3 fL; White Blood Count 5.6 K/mm3 (4.8-10.8)
[2025-03-02 10:53] LABS: Albumin Level 4.6 g/dl (3.5-5.0); Chloride 102 mmol/L (98-107); Potassium 4.3 mmoL/L (3.5-5.1); Sodium 136 mmol/L (136-145)
[2025-03-02 10:55] LABS: Blood Urea Nitrogen 10 mg/dl (7-17); Creatinine,Serum 0.50 mg/dl (0.52-1.04); Estimated Glomerular Filt Rate 148 ml/min (>60); GFR (African American) 179 ML/MIN (>60)
[2025-03-02 10:56] LABS: Alanine Aminotransferase 30 U/L (12-78); Albumin/Globulin Ratio 1.7 (1.1-1.8); Alkaline Phosphatase 56 U/L (38-126); Anion Gap 10.3 mEq/L (5-15); Aspartate Amino Transferase 25 U/L (14-36); Bilirubin,Total 1.1 mg/dl (0.2-1.3); Calcium 9.7 mg/dl (8.4-10.2); Carbon Dioxide 28 mmol/L (22.0-30.0); Cholesterol 129 mg/dl (140-200); Globulin 2.7 g/dL (1.3-3.2); Glucose 104 mg/dl (74-100); HDL Cholesterol 48 mg/dl (40-60); Total Protein,Serum 7.3 g/dl (6.3-8.2); Triglycerides 155 mg/dl (30-150)
[2025-03-02 11:00] LABS: NT Pro Brain Natriuretic Pep. < 20.0 pg/mL (0-125)
== END 2025-03-02 23:59 | disposition home or self-care (01) ==
LOC: LAB 09:44
PROVIDERS: PCP Internal Medicine Adolescent Medicine; Visit Provider Internal Medicine Adolescent Medicine
DX: E78.1 Pure hyperglyceridemia (principal); I50.9 Heart failure, unspecified
CPT/HCPCS: 36415; 80053; 80061; 83880; 85025